=== PATIENT | male | born 1935 | race Caucasian/White ===

== ENCOUNTER 2016-08-09 17:28 | Emergency (ER) | payer MEDICARE ==
--- NOTE | 2016-08-09 18:15 | Emergency Department Record ---
History of Present Illness - General Chief Complaint: Fall Injury Stated Complaint: FALL Time Seen by Provider: 08/09/16 18:10 Source: Patient, Family Mode of Arrival: Wheelchair - History of Present Illness Initial Comments: The patient and his states that he has been falling in the past and has fallen 4 times since , 08-06-16. He states that he feels unsteady and then falls. This time he states he hit the right side of his head on something on the way down and now it is sore there. reports that he has peripheral neuropathy and gets his feet tangled and confused when he tried to ambulate sometimes. He uses a walker typically. Dr. Goldstein is getting him an appointment with a neurologist at [facility] to see if he has parkinsons or other neurologic problems. He has a tremor in his right hand on and off. Also, he is going to see a urologist to evaluate his prostate and any other urologic issues. He has 2 stimulators in his back for his chronic back pain, uses hearing aides, and is being treated for htn, rectal prolapse, and chronic leg pain with chronic leg edema bilaterally. MD Complaint: Fall Onset/Timin -: Minutes(s) Fall From: Standing When Fall Occurred: Just prior to arrival Fall Witnessed: No Place Fall Occurred: Home Loss of Consciousness: None Prolonged Down Time?: No Symptoms Prior to Fall: None Location: Head, Back Severity: Moderate Severity scale (1-10): 8 Quality: Aching Context: History of frequent falls Associated Symptoms: Headache - [place] Coma Scale Eye Response: (4) Open spontaneously Motor Response: (6) Obeys commands Verbal Response: (5) Oriented [place] Total: 15 - Related Data Home Medications Medication Instructions Recorded Confirmed Last Taken Albuterol Sulfate 0.083% [Neb] 2.5 mg IH Q4HR 05/26/14 08/09/16 06/13/16 Budesonide/Formoterol Fumarate 10.2 gm IH BID 05/26/14 08/09/16 06/13/16 [Symbicort 160-4.5 Mcg Inhaler] Clorazepate Dipotassium [Tranxene 7.5 mg PO BID 05/26/14 08/09/16 06/13/16 T-Tab] Donepezil HCl [Aricept] 10 mg PO DAILY 05/26/14 08/09/16 06/13/16 Doxazosin Mesylate [Cardura] 2 mg PO BID 05/26/14 08/09/16 06/13/16 Escitalopram Oxalate [Lexapro] 10 mg PO QHS 05/26/14 08/09/16 06/12/16 Meloxicam [Mobic] 7.5 mg PO BID 05/26/14 08/09/16 06/13/16 Omeprazole [Prilosec] 40 mg PO DAILY 05/26/14 08/09/16 06/13/16 Ascorbate Calcium/Bioflavonoid 1 each PO BID 02/24/16 08/09/16 06/13/16 [Naima-C 500 mg Tablet] Aspirin Chewable 81 mg PO DAILY 02/24/16 08/09/16 06/13/16 Bisoprolol Fumarate/Hctz [Ziac 1 each PO DAILY 02/24/16 08/09/16 06/13/16 2.5-6.25 mg Tablet] Cholecalciferol (Vitamin D3) 800 unit PO DAILY 02/24/16 08/09/16 06/13/16 [Vitamin D3] Guaifenesin [Mucinex] 1,200 mg PO DAILY 02/24/16 08/09/16 06/13/16 Hydrocodone/Acetaminophen [Payne 1 tab PO Q8H PRN 02/24/16 08/09/16 06/13/16 5mg/325mg] Magnesium 500 mg PO DAILY 02/24/16 08/09/16 06/13/16 Melatonin 10 mg PO QHS 02/24/16 08/09/16 06/12/16 Mv,Minerals/FA/Lycopene/Ginkgo 1 each PO DAILY 02/24/16 08/09/16 06/13/16 [One Daily Men's 50+ Tablet] Tamsulosin HCl [Flomax] 0.8 mg PO QHS 06/13/16 08/09/16 06/12/16 Previous Rx's Medication Instructions Recorded Polyethylene Glycol 3350 [Miralax] 1 packet PO DAILY #30 packet 11/07/15 Allergies Allergy/AdvReac Type Severity Reaction Status Date / Time No Known Drug Allergies Allergy Unknown Verified 06/13/16 18:37 [NO KNOWN DRUG ALLERGIES] Travel Screening - Travel/Exposure Within Last 30 Days Have you traveled within the last 30 days?: No Review of Systems Reviewed: No additional complaints except as noted below Constitutional: Reports: As per HPI. Denies: Chills, Fever, Malaise, Night sweats, Weakness, Weight change Eyes: Reports: As per HPI. Denies: Eye discharge, Eye pain, Photophobia, Vision change ENT: Reports: As per HPI. Denies: Congestion, Dental pain, Ear pain, Epistaxis , Hearing loss, Throat pain Respiratory: Reports: As per HPI. Denies: Cough, Dyspnea, Hemoptysis, Stridor, Wheezes Cardiovascular: Reports: As per HPI. Denies: Arrhythmia, Chest pain, Dyspnea on exertion, Edema, Murmurs, Orthopnea, Palpitations, Paroxysmal nocturnal dyspnea, Rheumatic Fever, Syncope Endocrine: Reports: As per HPI. Denies: Fatigue, Heat or cold intolerance, Polydipsia, Polyuria Gastrointestinal: Reports: As per HPI. Denies: Abdominal pain, Constipation, Diarrhea, Hematemesis, Hematochezia, Melena, Nausea, Vomiting Genitourinary: Reports: As per HPI. Denies: Dysuria, Frequency, Hematuria, Incontinence, Retention, Testicular pain, Testicular mass, Urgency Musculoskeletal: Reports: As per HPI. Denies: Arthralgia, Back pain, Gout, Joint swelling, Myalgia, Neck pain Skin: Reports: As per HPI. Denies: Bruising, Change in color, Change in hair/ nails, Lesions, Pruritus, Rash Neurological: Reports: As per HPI. Denies: Abnormal gait, Confusion, Headache, Numbness, Paresthesias, Seizure, Tingling, Tremors, Vertigo, Weakness Psychiatric: Reports: As per HPI. Denies: Anxiety, Auditory hallucinations, Depression, Homicidal thoughts, Suicidal thoughts, Visual hallucinations Hematological/Lymphatic: Reports: As per HPI. Denies: Anemia, Blood Clots, Easy bleeding, Easy bruising, Swollen glands Past Medical History - SOCIAL HISTORY Smoking Status: Former smoker Alcohol Use: None Drug Use: None - RESPIRATORY Hx Respiratory Disorders: Yes Hx Asthma: Yes Hx COPD: Yes Hx Pneumonia: Yes (5 yrs ago) Hx Sleep Apnea: (tested for) - CARDIOVASCULAR Hx Cardio Disorders: Yes Hx Edema: Yes (slight in ankles) Hx Hypertension: Yes (good control w meds) Comment:: "has slower heartrate" "in the 60s" - NEURO Hx Neuro Disorders: Yes Hx Dementia: Yes (on Aricept) Hx Dizziness: Yes (when gets up too quickly) Hx Neuropathy: Yes (peripheral neuropathy in legs/& left hand) Hx of Neuromuscular Disease: Yes (peripheral neuropathy) Hx Weakness: Yes (both legs/feet) Comment:: some memory loss but no diagnosis - GI Hx GI Disorders: Yes Hx Reflux: Yes Hx Rectal Bleeding: Yes (has hemorrhoids internal-no bleed now) Hx of Polyps: Yes - Hx Genitourinary Disorders: Yes Hx Prostate Problems: Yes (? sees Dr Mckoy) Hx Renal Disease: Yes ("delicate kidneys"- creatinine elevated) Comment:: states he has a "drip" - ENDOCRINE Hx Endocrine Disorders: No - MUSCULOSKELETAL Hx Musculoskeletal Disorders: Yes Hx Arthritis: Yes (all over) Hx Back Injury: Yes ("4 yrs ago his heel caught a stone & fell -walking trail in [place].) Hx Osteoporosis: Yes Comment:: has bilat "frozen shoulders" - PSYCH Hx Psych Problems: Yes Hx Depression: Yes - HEMATOLOGY/ONCOLOGY Hx Hematology/Oncology Disorders: Yes Hx Bruising: Yes (easy to bruise) Hx Cancer: Yes (skin cancern removed) Family Medical History Any Significant Family History?: Yes Hx Cancer: Brother/Sister Hx Diabetes: Brother/Sister Hx Heart Disease: Father, Mother, Brother/Sister Hx HTN: Father Hx Stroke: Father Physical Exam - General General Appearance: Alert, Oriented x3, Cooperative, Mild distress (sitting in his wheelchair, getting up and down slowly due to being uncomfortable sitting, fine tremor of his right hand intermittently noted) Limitations: Physical limitation (hard of hearing, tremors) - Head Head exam: Normocephalic, Other (multiple very small abrasions, lacerations to right side of head with minor tenderness in that region) Head exam detail: Abrasion, Contusion. negative: Sanchez's sign, CSF otorrhea, CSF rhinorrhea, Hematoma, Laceration, Tenderness of temporal artery - Eye Eye exam: Normal appearance, PERRL, EOMI. negative: Nystagmus, Scleral icterus Pupils: Normal accommodation - ENT ENT exam: Normal exam, Mucous membranes moist, Normal external ear exam, Normal orophraynx, TM's normal bilaterally, Other (hearing aide right ear) Ear exam: Normal external inspection. negative: External canal tenderness Nasal Exam: Normal inspection. negative: Discharge, Sinus tenderness Mouth exam: Normal external inspection, Tongue normal Teeth exam: Normal inspection. negative: Dental caries Throat exam: Normal inspection. negative: Tonsillar erythema, Tonsillar exudate - Neck Neck exam: Normal inspection, Full ROM. negative: Lymphadenopathy, Meningismus , Tenderness - Respiratory Respiratory exam: Decreased breath sounds. negative: Accessory muscle use, Chest wall tenderness, Respiratory distress, Rhonchi, Stridor, Wheezes - Cardiovascular Cardiovascular Exam: Regular rate, Normal rhythm, Normal heart sounds - GI/Abdominal GI/Abdominal exam: Soft, Normal bowel sounds. negative: Tenderness - Rectal Rectal exam: Deferred - exam: Deferred - Extremities Extremities exam: Normal inspection, Full ROM, Normal capillary refill. negative: Tenderness - Back Back exam: Reports: Normal inspection, Full ROM. Denies: Muscle spasm, Rash noted, Tenderness - Neurological Neurological exam: Abnormal gait (unable without his walker), Alert, Normal gait , Oriented X3, Reflexes normal, Other (cogwheel-like rigidily similar to parkinsonian effect ) - Psychiatric Psychiatric exam: Normal affect, Normal mood - Skin Skin exam: Dry, Intact, Normal color, Warm Course Vital Signs 08/09/16 17:33 Temperature 98.1 F Pulse Rate 73 Respiratory 20 Rate Blood Pressure 131/83 Pulse Ox 98 Medical Decision Making - Management Options MDM Management: No Additional Work-up Planned - Data Complexity MDM Data: Labs Ordered and/or Reviewed, X-Ray Ordered and/or Reviewed (Head and C spine CT without acute abnormality but numerous chronic changes. Xrays of pelvis, LS spine, CXR all with NO acute abnormality but numerous chronic degenerative arthritic changes as before. Per radiologist.), EKG Ordered and/or Reviewed - Lab Data Result diagrams: 08/09/16 18:25 08/09/16 18:25 - EKG Data -: EKG Interpreted by Me EKG: No Acute Changes, Unchanged From Previous (prior of 03-01-16 is unchanged) Disposition Disposition: Discharge Clinical Impression: Recurrent falls Dementia Qualifiers: Dementia type: associated with other underlying disease Dementia behavioral disturbance: without behavioral disturbance Qualified Code(s): F02.80 - Dementia in other diseases classified elsewhere without behavioral disturbance Disposition: Home, Self-Care Condition: (1) Good Instructions: Fall Prevention for Older Adults (ED) Additional Instructions: Home with . Follow up with PCP as prevously arranged. Follow up with Neurologist and urologist as previously arranged. Continue present meds. Use your walker and extra caution for ambulation at all times.
[2016-08-09 18:41] LABS: BASO % 0.4 % (0-6); EOS % 1.7 % (0-6); GRAN % 79.2 % (47-80); HEMATOCRIT 41.3 % (42.0-52.0); HEMOGLOBIN 14.2 gm/dl (14.0-18.0); LYMPH % 10.7 % (16-45); MEAN CELL VOLUME 92.2 fl (81-97); MEAN CORPUSCULAR HEMOGLOBIN 31.7 pg (27-33); MEAN CORPUSCULAR HGB CONC 34.4 g/dl (32-36); MEAN PLATELET VOLUME 8.5 fl (7.4-10.4); PLATELET COUNT 164 K/uL (130-400); RED BLOOD COUNT 4.48 M/uL (4.40-5.70); RED CELL DISTRIBUTION WIDTH 12.8 % (11.5-14.5); WHITE BLOOD COUNT W/O DIFF 5.2 K/uL (4.2-12.2)
[2016-08-09 18:52] LABS: ANION GAP 9.9 (7-16); BLOOD UREA NITROGEN 29 mg/dL (9-20); CARBON DIOXIDE 26.1 mmol/L (22-30); CREATINE PHOSPHOKINASE 161 U/L (55-170); CREATININE 1.3 mg/dL (0.66-1.25); EST GLOMERULAR FILTRATION RATE 56 ml/min; GLUCOSE,RANDOM 110 mg/dL (70-110)
[2016-08-09 18:53] LABS: ALBUMIN 4.3 gm/dL (3.5-5.0); BILIRUBIN,TOTAL 0.44 mg/dL (0.2-1.3); TOTAL PROTEIN 6.8 gm/dL (6.3-8.2)
[2016-08-09 18:57] LABS: INR 1.11; PARTIAL THROMBOPLASTIN TIME 30.9 SECONDS (24.5-39.1); PROTHROMBIN TIME (PATIENT) 12.5 SECONDS (9.5-12.1)
[2016-08-09 19:04] LABS: TROPONIN I < 0.012 ng/mL (0.00-0.034)
[2016-08-09 20:48] LABS: URINE APPEARANCE CLEAR; URINE BILIRUBIN NEGATIVE (NEGATIVE); URINE BLOOD TRACE-I (NEGATIVE); URINE COLOR YELLOW; URINE GLUCOSE (UA) NEGATIVE (NEGATIVE); URINE KETONE NEGATIVE (NEGATIVE); URINE LEUKOCYTE ESTERASE NEGATIVE (NEGATIVE); URINE NITRITE NEGATIVE (NEGATIVE); URINE PROTEIN NEGATIVE (NEGATIVE); URINE UROBILINOGEN 0.2 E.U./dL (0.20 - 1.00)
[2016-08-09 20:55] LABS: URINE BACTERIA NONE SEEN; URINE EPITHELIAL CELLS 0 - 2 (FEW); URINE RBC 0 - 2 (NONE SEEN); URINE WBC 0 - 2 (0-2/hpf)
--- NOTE | 2016-08-13 13:00 | CT SCAN REPORT ---
EXAM: CT SCAN OF THE BRAIN WITHOUT CONTRAST HISTORY: MULTIPLE RECENT FALLS. HIT HEAD. TECHNIQUE: Standard CT imaging of the brain was performed in the axial plane without contrast. Additional coronal and sagittal reformatted images were also performed. Comparison: 06/13/16. Encounter: Initial. FINDINGS: There is mild generalized atrophy. The ventricles and subarachnoid spaces are otherwise normal. Mild chronic small vessel ischemic changes are present within the periventricular and subcortical white matter of both cerebral hemispheres and are unchanged. There is no mass, mass effect, intracranial hemorrhage, visible acute infarct, or abnormal extraaxial fluid. The skull is intact. Mild chronic mucosal thickening is present within the ethmoid sinuses and appears unchanged. The orbits and mastoids are normal. IMPRESSION: 1. STABLE ATROPHY AND CHRONIC SMALL VESSEL ISCHEMIC CHANGES. 2. NO ACUTE INTRACRANIAL ABNORMALITY. JOB NUMBER: [id number] [facility]
--- NOTE | 2016-08-13 13:05 | CT SCAN REPORT ---
EXAM: CT SCAN OF THE CERVICAL SPINE WITHOUT CONTRAST HISTORY: MULTIPLE RECENT FALLS. STRUCK HEAD. TECHNIQUE: Standard CT imaging of the cervical spine was performed in the axial plane without contrast. Additional coronal and sagittal reformatted images were also performed. Comparison: 06/13/16. FINDINGS: There is straightening of the cervical lordosis which is unchanged from the prior study. There is moderate arthritic change of the atlantodental articulation with associated pannus formation. This is unchanged. There is severe disk space narrowing of the C4 through the T2 levels with associated end plate degenerative change. Facet arthropathy is present throughout. There is no acute fracture, subluxation, or prevertebral soft tissue swelling. There is no gross central canal stenosis. Moderate neural foraminal narrowing is present at multiple levels. The neck soft tissues appear within normal limits. The lung apices are clear. IMPRESSION: 1. 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 2. NO ACUTE CERVICAL SPINE PATHOLOGY. J[facility]BER: [id number] [facility]
--- NOTE | 2016-08-13 13:07 | RADIOLOGY REPORT ---
EXAM: CHEST, TWO VIEWS HISTORY: MULTIPLE FALLS. TECHNIQUE: AP and lateral views of the chest were obtained. Comparison: 03/01/16. FINDINGS: The heart is normal in size. The mediastinum and pulmonary vasculature appear normal. There are no acute infiltrates or effusions. There is no pneumothorax. Dextroconvex scoliosis and multilevel degenerative changes are present within the thoracic spine. Electrical stimulator leads are present within the lower thoracic region and are unchanged. There are degenerative changes at both shoulders. No acute osseous abnormalities are identified. A stable calcified granuloma is present within the left mid lung. IMPRESSION: STABLE CHEST WITH NO ACUTE PROCESS IDENTIFIED. JOB NUMBER: [id number] [facility]
--- NOTE | 2016-08-13 13:11 | RADIOLOGY REPORT ---
EXAM: COMPLETE PELVIS HISTORY: MULTIPLE RECENT FALLS. TECHNIQUE: Three views of the pelvis were obtained. Comparison: 03/01/16. FINDINGS: Electrical stimulator devices project over both sides of the pelvis. Leads are present within the lumbosacral region. The bones are diffusely osteopenic. Degenerative changes are present within the lower lumbar spine as well as the sacroiliac joints and both hips. These all appear stable. There is no acute fracture or dislocation. IMPRESSION: 1. STABLE OSTEOPENIA AND MULTIFOCAL ARTHRITIC CHANGES. 2. NO ACUTE PATHOLOGY IDENTIFIED. J[facility]BER: [id number] [facility]
--- NOTE | 2016-08-13 13:15 | RADIOLOGY REPORT ---
EXAM: LUMBAR SPINE HISTORY: MULTIPLE RECENT FALLS. TECHNIQUE: Six views of the lumbar spine were obtained. Comparison: 03/01/16. FINDINGS: Electrical stimulator devices project over both sides of the pelvis. Leads extend to the lumbosacral spine as well as to the thoracolumbar spine. There is levoconvex scoliosis within the lumbar region which appears stable. There is severe disk space narrowing and end plate degenerative change throughout the lumbar region. Extensive facet arthropathy is also present throughout. There is no spondylolysis, spondylolisthesis, or acute compression fracture. The bony pelvis appears intact. IMPRESSION: 1. 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 2. LEVOCONVEX SCOLIOSIS. 3. NO ACUTE LUMBAR SPINE PATHOLOGY. 4. ELECTRICAL STIMULATOR DEVICES IN PLACE. JOB NUMBER: [id number] [facility]
== END 2016-08-09 22:06 | disposition home or self-care (01) ==
LOC: ER 17:28
DX: S01.81XA Laceration without foreign body of other part of head, initial encounter (principal); R51 Headache; M54.5 Low back pain; M25.559 Pain in unspecified hip; R25.1 Tremor, unspecified; I10 Essential (primary) hypertension; M50.30 Other cervical disc degeneration, unspecified cervical region; F02.80 Dementia in other diseases classified elsewhere, unspecified severity, without behavioral disturbance, psychotic disturbance, mood disturbance, and anxiety; W18.00XA Striking against unspecified object with subsequent fall, initial encounter; Y92.009 Unspecified place in unspecified non-institutional (private) residence as the place of occurrence of the external cause; Z87.891 Personal history of nicotine dependence; Z91.81 History of falling
CPT/HCPCS: 70450; 71020; 72110; 72125; 72190; 80048; 80076; 81001; 82550; 84484; 85025; 85610; 85730; 93005; 93010; 99284

== ENCOUNTER 2017-12-12 19:28 | Emergency (ER) | payer MEDICARE ==
--- NOTE | 2017-12-12 19:40 | Emergency Department Record ---
History of Present Illness - General Chief Complaint: Chest Pain Stated Complaint: CHEST TIGHTNESS,HIGH BLOOD PRESSURE Source: Patient Mode of Arrival: Ambulatory Limitations: No limitations - History of Present Illness Initial Comments: 82 yo male presents with a tightness feeling in the chest that started in the 1- 2 hours. He was busier than usual today active outside working on his tractor. He felt some shortness of breath. No cough. He states no sharp pain or pain in the back. He denies a history of CAD. He does have Parkinson's. No other recent abrupt changes in his health. Dr Goldstein is his doctor. No nausea, vomiting. His symptoms seem to be more with the activity. MD Complaint: Chest pain -: Hour(s) Onset: During exertion Pain Location: Substernal Pain Radiation: None Severity: Mild Quality: Heaviness, Tightness, Other Consistency: Constant Improves With: Nothing Worsens With: Nothing Anginal Symptoms: Dyspnea Other Symptoms: Other Treatments Prior to Arrival: None - Related Data Home Medications Medication Instructions Recorded Confirmed Last Taken Memantine HCl [Namenda] 10 mg PO BID 12/12/17 12/12/17 Unknown Previous Rx's Medication Instructions Recorded Polyethylene Glycol 3350 [Miralax] 1 packet PO DAILY #30 packet 11/07/15 Allergies Allergy/AdvReac Type Severity Reaction Status Date / Time No Known Drug Allergies Allergy Unknown Verified 06/13/16 18:37 [NO KNOWN DRUG ALLERGIES] Review of Systems Constitutional: Denies: Chills, Fever, Malaise, Weakness Eyes: Denies: Eye discharge ENT: Denies: Congestion, Throat pain Respiratory: Reports: Dyspnea. Denies: Cough, Hemoptysis, Stridor, Wheezes Cardiovascular: Reports: Chest pain. Denies: Palpitations, Syncope Endocrine: Denies: Fatigue, Polydipsia, Polyuria Gastrointestinal: Denies: Abdominal pain, Diarrhea, Nausea, Vomiting Genitourinary: Denies: Dysuria, Frequency, Hematuria Musculoskeletal: Denies: Arthralgia, Back pain, Joint swelling, Myalgia Skin: Denies: Bruising, Change in color, Rash Neurological: Denies: Confusion, Headache Psychiatric: Denies: Anxiety Hematological/Lymphatic: Denies: Easy bleeding, Easy bruising Past Medical History - SOCIAL HISTORY Smoking Status: Former smoker Drug Use: None - RESPIRATORY Hx Respiratory Disorders: Yes Hx Asthma: Yes Hx COPD: Yes Hx Pneumonia: Yes (5 yrs ago) Hx Sleep Apnea: (tested for) - CARDIOVASCULAR Hx Cardio Disorders: Yes Hx Edema: Yes (slight in ankles) Hx Hypertension: Yes (good control w meds) Comment:: "has slower heartrate" "in the 60s" - NEURO Hx Neuro Disorders: Yes Hx Dementia: Yes (on Aricept) Hx Dizziness: Yes (when gets up too quickly) Hx Neuropathy: Yes (peripheral neuropathy in legs/& left hand) Hx of Neuromuscular Disease: Yes (peripheral neuropathy) Hx Weakness: Yes (both legs/feet) Comment:: some memory loss but no diagnosis - GI Hx GI Disorders: Yes Hx Reflux: Yes Hx Rectal Bleeding: Yes (has hemorrhoids internal-no bleed now) Hx of Polyps: Yes - Hx Genitourinary Disorders: Yes Hx Prostate Problems: Yes (? sees Dr Mckoy) Hx Renal Disease: Yes ("delicate kidneys"- creatinine elevated) Comment:: states he has a "drip" - ENDOCRINE Hx Endocrine Disorders: No - MUSCULOSKELETAL Hx Musculoskeletal Disorders: Yes Hx Arthritis: Yes (all over) Hx Back Injury: Yes ("4 yrs ago his heel caught a stone & fell -walking trail in [place].) Hx Osteoporosis: Yes Comment:: has bilat "frozen shoulders" - PSYCH Hx Psych Problems: Yes Hx Depression: Yes - HEMATOLOGY/ONCOLOGY Hx Hematology/Oncology Disorders: Yes Hx Bruising: Yes (easy to bruise) Hx Cancer: Yes (skin cancern removed) Family Medical History Hx Cancer: Brother/Sister Hx Diabetes: Brother/Sister Hx Heart Disease: Father, Mother, Brother/Sister Hx HTN: Father Hx Stroke: Father Physical Exam - General General Appearance: Alert, Oriented x3, Cooperative, No acute distress Limitations: No limitations - Head Head exam: Normal inspection - Eye Eye exam: Normal appearance. negative: Conjunctival injection, Scleral icterus - ENT ENT exam: Normal exam Ear exam: Normal external inspection Nasal Exam: Normal inspection Mouth exam: Normal external inspection Teeth exam: Normal inspection Throat exam: Normal inspection - Neck Neck exam: Normal inspection, Full ROM. negative: Tenderness - Respiratory Respiratory exam: Normal lung sounds bilaterally. negative: Respiratory distress - Cardiovascular Cardiovascular Exam: Regular rate, Normal rhythm, Normal heart sounds Peripheral Pulses: 2+: Radial (R), Radial (L) - GI/Abdominal GI/Abdominal exam: Soft. negative: Tenderness - Rectal Rectal exam: Deferred - exam: Deferred - Extremities Extremities exam: Normal inspection, Full ROM, Normal capillary refill. negative: Pedal edema, Tenderness - Back Back exam: Denies: CVA tenderness (R), CVA tenderness (L) - Neurological Neurological exam: Alert, Normal gait, Oriented X3, Reflexes normal, Other ( tremor) - Psychiatric Psychiatric exam: Normal affect, Normal mood - Skin Skin exam: Dry, Intact, Normal color, Warm Course - Reevaluation(s) Reevaluation #1: EKG 1943 sinus rhythm rate is 69, ME 213, artifact from nerve stimulator, No acute ST changes. Prior EKG demonstrated artifact from the nerve stimulator as well 12/12/17 19:58 12/12/17 20:26 EKG #2 was performed after the nerve stimulator turned off 2012 NSR rate 65, intervals normal, axis L, no acute changes, NO changes from prior EKG 12/12/17 20:33 The Troponin is indeterminate at 0.04 The CK and MB are elevated The patient remains pain free I recommended transfer for a cardiology consultation The patient prefers [facility]. 12/12/17 20:38 Dr Macdonald recommends transfer to [facility] with IM 12/12/17 20:54 Dr Verdin accepts the patient for transfer. Medical Decision Making - Lab Data Result diagrams: 12/12/17 19:41 12/12/17 19:41 Disposition Disposition: Transfer Clinical Impression: Chest pain, Unstable angina Disposition: Acute Care Hospital Transfer Transfer To: [facility] [place] For Transfer: [place], Chest pain Accepting Physician: Javier Time Discussed w/Accepting Physician: 20:54 Condition: (2) Stable Forms: Patient Portal Access Time of Disposition: 20:33 Quality - Quality Measures Quality Measures: N/A - Blood Pressure Screening Does Patient Have Any of the Following: Active Dx of HTN Blood Pressure Classification: Pre-Hypertensive BP Reading Systolic Measurement: 128 Diastolic Measurement: 88 Screening for High Blood Pressure: Patient Exclusion, Hx of HTN [G9744]
[2017-12-12 19:48] LABS: BASO % 0.3 % (0-6); EOS % 2.8 % (0-6); GRAN % 77.2 % (47-80); HEMATOCRIT 45.7 % (42.0-52.0); HEMOGLOBIN 15.1 gm/dl (14.0-18.0); LYMPH % 11.7 % (16-45); MEAN CELL VOLUME 98.9 fl (81-97); MEAN CORPUSCULAR HEMOGLOBIN 32.7 pg (27-33); MEAN PLATELET VOLUME 8.5 fl (7.4-10.4); PLATELET COUNT 171 K/uL (130-400); RED BLOOD COUNT 4.62 M/uL (4.40-5.70); RED CELL DISTRIBUTION WIDTH 13.4 % (11.5-14.5)
[2017-12-12 20:00] LABS: BILIRUBIN,TOTAL 0.3 mg/dL (0.2-1.0); CREATININE 1.5 mg/dL (0.7-1.2)
[2017-12-12 20:01] LABS: TOTAL PROTEIN 7.1 g/dL (6.6-8.7)
[2017-12-12 20:05] LABS: ALB/GLOB RATIO 1.5 (1.1-1.8); ALBUMIN 4.3 g/dL (4.0-5.0)
[2017-12-12 20:08] LABS: CKMB 9.2 ng/mL (<6.73)
[2017-12-12 20:16] LABS: CKMB RELATIVE INDEX 5.5 % (0-4)
[2017-12-12] MEDS ORDERED: ASPIRIN 325 MG TABLET PO ONE (20:25)
[2017-12-12] MEDS ORDERED: HEPARIN SODIUM 1000 UNIT/1 ML 10ML VIAL IVP ONE (20:27)
[2017-12-12] MEDS ORDERED: HEPARIN SODIUM/D5W 25,000 UNITS/500 ML BAG IV SCH (20:30)
--- NOTE | 2017-12-13 14:23 | RADIOLOGY REPORT ---
EXAM: AP PORTABLE CHEST HISTORY: CHEST TIGHTNESS, HIGH BLOOD PRESSURE. TECHNIQUE: An AP portable view of the chest was obtained. Comparison: Two view chest 08/09/16. FINDINGS: The heart size is within normal limits. Lordotic positioning. No definite acute infiltrate seen. No pleural effusion or pneumothorax evident. Small granulomas left mid lung unchanged from before and also unchanged from consistent with a granuloma. Mild torsion of the aorta. IMPRESSION: 1. SMALL GRANULOMA LEFT MID LUNG. 2. NO ACUTE INFILTRATE IDENTIFIED. JOB NUMBER: [id number] [facility]
== END 2017-12-12 22:51 | disposition short-term general hospital (02) ==
LOC: ER 19:28
DX: I20.0 Unstable angina (principal); R06.02 Shortness of breath; I10 Essential (primary) hypertension; J44.9 Chronic obstructive pulmonary disease, unspecified; F17.210 Nicotine dependence, cigarettes, uncomplicated
CPT/HCPCS: 71045; 80053; 82550; 82553; 84484; 85025; 93005; 93010; 96365; 96366; 96375; 99285

== ENCOUNTER 2018-04-24 12:41 | Emergency (ER) | payer MEDICARE ==
--- NOTE | 2018-04-24 13:47 | Emergency Department Record ---
History of Present Illness - General Chief Complaint: Laceration(s) Stated Complaint: rt forearm injury Time Seen by Provider: 04/24/18 13:38 Source: Patient, RN notes reviewed Mode of Arrival: Ambulatory - History of Present Illness Initial Commments: fall in his barn and tool and toolcontainer fell over on him with laceration to the right forearm and swelling and he also complains of neck pain and talking slowly. history of parkinson disease. primary Dr. Goldstein Onset/Timin -: Minutes(s) Place: Home Context: Accidental Associated Symptoms: None Treatments Prior to Arrival: Bandage - Vipul Coma Scale Eye Response: (4) Open spontaneously Motor Response: (6) Obeys commands Verbal Response: (5) Oriented [place] Total: 15 - Related Data Hx Tetanus Toxoid Vaccination: Yes Year of Tetanus Vaccination: unknown Home Medications Medication Instructions Recorded Confirmed Last Taken Carbidopa/Levodopa 25Mg/100Mg 1 each PO QID 04/24/18 04/24/18 04/23/18 [Sinemet] Previous Rx's Medication Instructions Recorded Polyethylene Glycol 3350 [Miralax] 1 packet PO DAILY #30 packet 11/07/15 Allergies Allergy/AdvReac Type Severity Reaction Status Date / Time No Known Drug Allergies Allergy Unknown Verified 06/13/16 18:37 [NO KNOWN DRUG ALLERGIES] Travel Screening - Travel/Exposure Within Last 30 Days Have you traveled within the last 30 days?: No - Travel/Exposure Within Last Year Have you traveled outside the [place] in the last year?: No - Additonal Travel Details Have you been exposed to anyone with a communicable illness?: No - Travel Symptoms Symptom Screening: None Review of Systems Reviewed: No additional complaints except as noted below Constitutional: Reports: As per HPI. Denies: Chills, Fever, Malaise, Night sweats, Weakness, Weight change Eyes: Reports: As per HPI. Denies: Eye discharge, Eye pain, Photophobia, Vision change ENT: Reports: As per HPI. Denies: Congestion, Dental pain, Ear pain, Epistaxis , Hearing loss, Throat pain Respiratory: Reports: As per HPI. Denies: Cough, Dyspnea, Hemoptysis, Stridor, Wheezes Cardiovascular: Reports: As per HPI. Denies: Arrhythmia, Chest pain, Dyspnea on exertion, Edema, Murmurs, Orthopnea, Palpitations, Paroxysmal nocturnal dyspnea, Rheumatic Fever, Syncope Endocrine: Reports: As per HPI. Denies: Fatigue, Heat or cold intolerance, Polydipsia, Polyuria Gastrointestinal: Reports: As per HPI. Denies: Abdominal pain, Constipation, Diarrhea, Hematemesis, Hematochezia, Melena, Nausea, Vomiting Genitourinary: Reports: As per HPI. Denies: Dysuria, Frequency, Hematuria, Incontinence, Retention, Testicular pain, Testicular mass, Urgency Musculoskeletal: Reports: As per HPI. Denies: Arthralgia, Back pain, Gout, Joint swelling, Myalgia, Neck pain Skin: Reports: As per HPI. Denies: Bruising, Change in color, Change in hair/ nails, Lesions, Pruritus, Rash Neurological: Reports: As per HPI. Denies: Abnormal gait, Confusion, Headache, Numbness, Paresthesias, Seizure, Tingling, Tremors, Vertigo, Weakness Psychiatric: Reports: As per HPI. Denies: Anxiety, Auditory hallucinations, Depression, Homicidal thoughts, Suicidal thoughts, Visual hallucinations Hematological/Lymphatic: Reports: As per HPI. Denies: Anemia, Blood Clots, Easy bleeding, Easy bruising, Swollen glands Past Medical History - SOCIAL HISTORY Smoking Status: Former smoker Alcohol Use: None Drug Use: None - RESPIRATORY Hx Respiratory Disorders: Yes Hx Asthma: Yes Hx COPD: Yes Hx Pneumonia: Yes (5 yrs ago) Hx Sleep Apnea: (tested for) - CARDIOVASCULAR Hx Cardio Disorders: Yes Hx Edema: Yes (slight in ankles) Hx Hypertension: Yes (good control w meds) Comment:: "has slower heartrate" "in the 60s" - NEURO Hx Neuro Disorders: Yes Hx Dementia: Yes (on Aricept) Hx Dizziness: Yes (when gets up too quickly) Hx Neuropathy: Yes (peripheral neuropathy in legs/& left hand) Hx of Neuromuscular Disease: Yes (peripheral neuropathy) Hx Weakness: Yes (both legs/feet) Comment:: some memory loss but no diagnosis - GI Hx GI Disorders: Yes Hx Reflux: Yes Hx Rectal Bleeding: Yes (has hemorrhoids internal-no bleed now) Hx of Polyps: Yes - Hx Genitourinary Disorders: Yes Hx Prostate Problems: Yes (? sees Dr Mckoy) Hx Renal Disease: Yes ("delicate kidneys"- creatinine elevated) Comment:: states he has a "drip" - ENDOCRINE Hx Endocrine Disorders: No - MUSCULOSKELETAL Hx Musculoskeletal Disorders: Yes Hx Arthritis: Yes (all over) Hx Back Injury: Yes ("4 yrs ago his heel caught a stone & fell -walking trail in [place].) Hx Osteoporosis: Yes Comment:: has bilat "frozen shoulders" - PSYCH Hx Psych Problems: Yes Hx Depression: Yes - HEMATOLOGY/ONCOLOGY Hx Hematology/Oncology Disorders: Yes Hx Bruising: Yes (easy to bruise) Hx Cancer: Yes (skin cancern removed) Family Medical History Any Significant Family History?: No Hx Cancer: Brother/Sister Hx Diabetes: Brother/Sister Hx Heart Disease: Father, Mother, Brother/Sister Hx HTN: Father Hx Stroke: Father Physical Exam - General General Appearance: Alert, Oriented x3, Cooperative, No acute distress - Head Head exam: Normal inspection - Eye Eye exam: Normal appearance, PERRL Pupils: Normal accommodation - ENT ENT exam: Normal exam, Mucous membranes moist, Normal external ear exam, Normal orophraynx, TM's normal bilaterally Ear exam: Normal external inspection. negative: External canal tenderness Nasal Exam: Normal inspection. negative: Discharge, Sinus tenderness Mouth exam: Normal external inspection, Tongue normal Teeth exam: Normal inspection. negative: Dental caries Throat exam: Normal inspection. negative: Tonsillar erythema, Tonsillar exudate - Neck Neck exam: Normal inspection, Full ROM. negative: Tenderness - Respiratory Respiratory exam: Normal lung sounds bilaterally. negative: Respiratory distress - Cardiovascular Cardiovascular Exam: Regular rate, Normal rhythm, Normal heart sounds - GI/Abdominal GI/Abdominal exam: Soft, Normal bowel sounds. negative: Tenderness - Rectal Rectal exam: Deferred - exam: Deferred - Extremities Extremities exam: Normal inspection, Full ROM, Normal capillary refill. negative: Tenderness - Back Back exam: Reports: Normal inspection, Full ROM. Denies: Muscle spasm, Rash noted, Tenderness - Neurological Neurological exam: Alert, Normal gait, Oriented X3, Reflexes normal - Psychiatric Psychiatric exam: Normal affect, Normal mood - Skin Skin exam: Dry, Intact, Normal color, Warm Course Vital Signs 04/24/18 12:59 Temperature 97.4 F L Pulse Rate 61 Respiratory 20 Rate Blood Pressure 145/80 Pulse Ox 98 - Reevaluation(s) Reevaluation #1: laceration right forearm 6 inches and skin is to thin to suture and applied steristrips to approximate the skin edges after cleaning with shurclens. 04/24/18 14:50 Medical Decision Making - Lab Data Result diagrams: 04/24/18 13:45 04/24/18 13:45 Disposition Clinical Impression: Laceration of arm Qualifiers: Encounter type: initial encounter Laterality: right Qualified Code(s): S41.111A - Laceration without foreign body of right upper arm, initial encounter Cervical strain, acute Qualifiers: Encounter type: initial encounter Qualified Code(s): S16.1XXA - Strain of muscle, fascia and tendon at neck level, initial encounter Disposition: Home, Self-Care Condition: (1) Good Instructions: Laceration (ED) Additional Instructions: follow up with Dr. Goldstein in 2-3 days left steristrips fall off by themself. wound care Forms: Patient Portal Access Time of Disposition: 14:54 Quality - Quality Measures Quality Measures: N/A - Blood Pressure Screening Does Patient Have Any of the Following: No, Active Dx of HTN Blood Pressure Classification: Pre-Hypertensive BP Reading Systolic Measurement: 145 Diastolic Measurement: 80 Screening for High Blood Pressure: Patient Exclusion, Hx of HTN [[id number]]
[2018-04-24 13:51] LABS: BASO % 0.4 % (0-6); EOS % 5.2 % (0-6); GRAN % 72.2 % (47-80); HEMOGLOBIN 13.8 gm/dl (14.0-18.0); LYMPH % 12.5 % (16-45); MEAN CELL VOLUME 99.3 fl (81-97); MEAN CORPUSCULAR HGB CONC 32.1 g/dl (32-36); MEAN PLATELET VOLUME 8.9 fl (7.4-10.4); MONO % 9.7 % (0-9); PLATELET COUNT 175 K/uL (130-400); RED BLOOD COUNT 4.33 M/uL (4.40-5.70); RED CELL DISTRIBUTION WIDTH 13.4 % (11.5-14.5)
[2018-04-24 13:52] LABS: MEAN CORPUSCULAR HEMOGLOBIN 31.8 pg (27-33)
[2018-04-24 14:04] LABS: CREATININE 1.6 mg/dL (0.7-1.2)
== END 2018-04-24 15:32 | disposition home or self-care (01) ==
LOC: ER 12:41
DX: S51.811A Laceration without foreign body of right forearm, initial encounter (principal); S16.1XXA Strain of muscle, fascia and tendon at neck level, initial encounter; I10 Essential (primary) hypertension; G20 Parkinson's disease; Z87.891 Personal history of nicotine dependence; W01.198A Fall on same level from slipping, tripping and stumbling with subsequent striking against other object, initial encounter; Y92.71 Barn as the place of occurrence of the external cause
CPT/HCPCS: 70450; 72125; 80048; 85025; 99283; 99284

== ENCOUNTER 2018-08-25 11:15 | Emergency (ER) | payer MEDICARE ==
[2018-08-25] MEDS ORDERED: METHYLPREDNISOLONE PF 125MG/VIAL IVP ONE (11:37)
[2018-08-25] MEDS ORDERED: IPRATROPIUM/ALBUTEROL (0.5MG/3MG) NEB INH ONE (11:44)
[2018-08-25 12:03] LABS: BASO % 0.4 % (0-6); GRAN % 75.7 % (47-80); HEMATOCRIT 46.6 % (42.0-52.0); HEMOGLOBIN 15.6 gm/dl (14.0-18.0); LYMPH % 8.7 % (16-45); MEAN CELL VOLUME 98.3 fl (81-97); MEAN CORPUSCULAR HEMOGLOBIN 32.9 pg (27-33); MEAN CORPUSCULAR HGB CONC 33.5 g/dl (32-36); MEAN PLATELET VOLUME 8.9 fl (7.4-10.4); MONO % 5.2 % (0-9); PLATELET COUNT 199 K/uL (130-400); RED BLOOD COUNT 4.74 M/uL (4.40-5.70); RED CELL DISTRIBUTION WIDTH 13.6 % (11.5-14.5); WHITE BLOOD COUNT W/O DIFF 5.2 K/uL (4.2-12.2)
[2018-08-25 12:06] LABS: CREATININE 1.5 mg/dL (0.7-1.2)
[2018-08-25 12:07] LABS: INFLUENZA A NEGATIVE (NEGATIVE); INFLUENZA B NEGATIVE (NEGATIVE)
[2018-08-25 12:13] LABS: NTpro B-NATRIURETIC PEPTIDE 230.7 pg/mL (<450)
--- NOTE | 2018-08-25 12:18 | Emergency Department Record ---
History of Present Illness - General Chief Complaint: Shortness of breath Stated Complaint: COUGHING/SHORT OF BREATH Time Seen by Provider: 08/25/18 11:28 Source: Patient Mode of Arrival: Wheelchair Limitations: No limitations - History of Present Illness Initial Comments: pt has been increasingly sob over the last week w a productive yellow cough Complaint: Shortness of breath Onset/Timin -: Week(s) Consistency: Getting worse Improves With: Rest, Upright position Worsens With: Exertion, Lying flat Known History Of: Asthma, COPD, Recurrent pneumonia Associated Symptoms: Cough, Sputum production Treatments Prior to Arrival: None - Related Data Home Oxygen Therapy: No Home Medications Medication Instructions Recorded Confirmed Last Taken Mirabegron [Myrbetriq] 50 mg PO QHS 08/25/18 08/25/18 Unknown Trazodone HCl 50 mg PO QHS 08/25/18 08/25/18 Unknown Previous Rx's Medication Instructions Recorded Polyethylene Glycol 3350 [Miralax] 1 packet PO DAILY #30 packet 11/07/15 Amoxicillin 500 mg PO Q8HR #30 capsule 08/25/18 Allergies Allergy/AdvReac Type Severity Reaction Status Date / Time No Known Drug Allergies Allergy Unknown Verified 08/25/18 11:21 [NO KNOWN DRUG ALLERGIES] Travel Screening - Travel/Exposure Within Last 30 Days Have you traveled within the last 30 days?: No - Travel/Exposure Within Last Year Have you traveled outside the [place] in the last year?: No - Additonal Travel Details Have you been exposed to anyone with a communicable illness?: No - Travel Symptoms Symptom Screening: None Review of Systems Reviewed: No additional complaints except as noted below Constitutional: Reports: As per HPI. Denies: Chills, Fever, Malaise, Night sweats, Weakness, Weight change Eyes: Reports: As per HPI. Denies: Eye discharge, Eye pain, Photophobia, Vision change ENT: Reports: As per HPI. Denies: Congestion, Dental pain, Ear pain, Epistaxis , Hearing loss, Throat pain Respiratory: Reports: As per HPI, Cough, Dyspnea. Denies: Hemoptysis, Stridor, Wheezes Cardiovascular: Reports: As per HPI. Denies: Arrhythmia, Chest pain, Dyspnea on exertion, Edema, Murmurs, Orthopnea, Palpitations, Paroxysmal nocturnal dyspnea, Rheumatic Fever, Syncope Endocrine: Reports: As per HPI. Denies: Fatigue, Heat or cold intolerance, Polydipsia, Polyuria Gastrointestinal: Reports: As per HPI. Denies: Abdominal pain, Constipation, Diarrhea, Hematemesis, Hematochezia, Melena, Nausea, Vomiting Genitourinary: Reports: As per HPI. Denies: Dysuria, Frequency, Hematuria, Incontinence, Retention, Testicular pain, Testicular mass, Urgency Musculoskeletal: Reports: As per HPI. Denies: Arthralgia, Back pain, Gout, Joint swelling, Myalgia, Neck pain Skin: Reports: As per HPI. Denies: Bruising, Change in color, Change in hair/ nails, Lesions, Pruritus, Rash Neurological: Reports: As per HPI. Denies: Abnormal gait, Confusion, Headache, Numbness, Paresthesias, Seizure, Tingling, Tremors, Vertigo, Weakness Psychiatric: Reports: As per HPI. Denies: Anxiety, Auditory hallucinations, Depression, Homicidal thoughts, Suicidal thoughts, Visual hallucinations Hematological/Lymphatic: Reports: As per HPI. Denies: Anemia, Blood Clots, Easy bleeding, Easy bruising, Swollen glands Past Medical History - SOCIAL HISTORY Smoking Status: Former smoker Alcohol Use: None Drug Use: None - RESPIRATORY Hx Respiratory Disorders: Yes Hx Asthma: Yes Hx COPD: Yes Hx Pneumonia: Yes (5 yrs ago) Hx Sleep Apnea: (tested for) - CARDIOVASCULAR Hx Cardio Disorders: Yes Hx Edema: Yes (slight in ankles) Hx Hypertension: Yes (good control w meds) Comment:: "has slower heartrate" "in the 60s" - NEURO Hx Neuro Disorders: Yes Hx Dementia: Yes (on Aricept) Hx Dizziness: Yes (when gets up too quickly) Hx Neuropathy: Yes (peripheral neuropathy in legs/& left hand) Hx of Neuromuscular Disease: Yes (peripheral neuropathy) Hx Weakness: Yes (both legs/feet) Comment:: some memory loss but no diagnosis - GI Hx GI Disorders: Yes Hx Reflux: Yes Hx Rectal Bleeding: Yes (has hemorrhoids internal-no bleed now) Hx of Polyps: Yes - Hx Genitourinary Disorders: Yes Hx Prostate Problems: Yes (? sees Dr Mckoy) Hx Renal Disease: Yes ("delicate kidneys"- creatinine elevated) Comment:: states he has a "drip" - ENDOCRINE Hx Endocrine Disorders: No - MUSCULOSKELETAL Hx Musculoskeletal Disorders: Yes Hx Arthritis: Yes (all over) Hx Back Injury: Yes ("4 yrs ago his heel caught a stone & fell -walking trail in [place].) Hx Osteoporosis: Yes Comment:: has bilat "frozen shoulders" - PSYCH Hx Psych Problems: Yes Hx Depression: Yes - HEMATOLOGY/ONCOLOGY Hx Hematology/Oncology Disorders: Yes Hx Bruising: Yes (easy to bruise) Hx Cancer: Yes (skin cancer removed) Family Medical History Any Significant Family History?: Yes Hx Cancer: Brother/Sister Hx Diabetes: Brother/Sister Hx Heart Disease: Father, Mother, Brother/Sister Hx HTN: Father Hx Stroke: Father Physical Exam - General General Appearance: Alert, Oriented x3, Cooperative, Mild distress - Head Head exam: Normal inspection - Eye Eye exam: Normal appearance, PERRL, EOMI Pupils: Normal accommodation - ENT ENT exam: Normal exam, Mucous membranes moist, Normal external ear exam, Normal orophraynx Ear exam: Normal external inspection. negative: External canal tenderness Nasal Exam: Normal inspection. negative: Discharge, Sinus tenderness Mouth exam: Normal external inspection, Tongue normal Teeth exam: Normal inspection. negative: Dental caries Throat exam: Normal inspection. negative: Tonsillar erythema, Tonsillar exudate - Neck Neck exam: Normal inspection, Full ROM. negative: Tenderness - Respiratory Respiratory exam: Respiratory distress, Wheezes - Cardiovascular Cardiovascular Exam: Regular rate, Normal rhythm, Normal heart sounds - GI/Abdominal GI/Abdominal exam: Soft, Normal bowel sounds. negative: Tenderness - Rectal Rectal exam: Deferred - exam: Deferred - Extremities Extremities exam: Normal inspection, Full ROM, Normal capillary refill. negative: Tenderness - Back Back exam: Reports: Normal inspection, Full ROM. Denies: Muscle spasm, Rash noted, Tenderness - Neurological Neurological exam: Alert, CN II-XII intact, Normal gait, Oriented X3 - Psychiatric Psychiatric exam: Normal affect, Normal mood - Skin Skin exam: Dry, Intact, Normal color, Warm Course Vital Signs 08/25/18 08/25/18 11:18 11:38 Temperature 97.6 F Pulse Rate 72 73 Respiratory 24 20 Rate Blood Pressure 109/73 Pulse Ox 89 L 100 - Reevaluation(s) Reevaluation #1: 08/25/18 13:25 pt feels better, breathing easier Medical Decision Making - Lab Data Result diagrams: 08/25/18 11:30 01/17/19 11:30 Lab Results 08/25/18 08/25/18 08/25/18 Range/Units 11:30 11:30 11:30 WBC 5.2 (4.2-12.2) K/uL RBC 4.74 (4.40-5.70) M/uL Hgb 15.6 (14.0-18.0) gm/dl Hct 46.6 (42.0-52.0) % MCV 98.3 H (81-97) fl MCH 32.9 (27-33) pg MCHC 33.5 (32-36) g/dl RDW 13.6 (11.5-14.5) % Plt Count 199 (130-400) K/uL MPV 8.9 (7.4-10.4) fl Gran % 75.7 (47-80) % Lymphocytes % 8.7 L (16-45) % Monocytes % 5.2 (0-9) % Eosinophils % 10.0 H (0-6) % Basophils % 0.4 (0-6) % Sodium 134 L (136-145) mmol/L Potassium 4.3 (3.4-4.5) mmol/L Chloride 93 L (98-107) mmol/L Carbon Dioxide 29.0 (22-29) mmol/L Anion Gap 12.0 (7-16) BUN 23 (8-23) mg/dL Creatinine 1.5 H (0.7-1.2) mg/dL Estimated GFR 48 mL/min Random Glucose 90 (74-109) mg/dL Calcium 9.7 (8.8-10.2) mg/dL Influenza Type A Ag Negative (NEGATIVE) Influenza Type B Ag Negative (NEGATIVE) Disposition Disposition: Discharge Clinical Impression: Respiratory distress, Bronchitis Disposition: Home, Self-Care Condition: (1) Good Instructions: Acute Bronchitis (ED), Dyspnea (ED) Additional Instructions: follow up with family doctor tomorrow. return sooner if worse. Prescriptions: Amoxicillin 500 mg PO Q8HR #30 capsule Forms: Patient Portal Access Quality - Quality Measures Quality Measures: N/A - Blood Pressure Screening Does Patient Have Any of the Following: No Blood Pressure Classification: Normal BP Reading Systolic Measurement: 109 Diastolic Measurement: 73 Screening for High Blood Pressure: < Normal BP, F/U Not Required > [G8783]
--- NOTE | 2018-08-26 13:44 | RADIOLOGY REPORT ---
EXAM: CHEST, TWO VIEWS HISTORY: DIFFICULTY IN BREATHING. TECHNIQUE: Frontal and lateral views of the chest were performed. Comparison: 12/12/17. FINDINGS: The heart size is normal. The lung elena are clear. No infiltrate or pleural effusion. There is degenerative change in both shoulder girdles and the thoracic spine. IMPRESSION: NO ACUTE PULMONARY DISEASE PROCESS. JOB NUMBER: [id number] MTDD
== END 2018-08-25 14:12 | disposition home or self-care (01) ==
LOC: ER 11:15
DX: R06.03 Acute respiratory distress (principal); J20.9 Acute bronchitis, unspecified; J44.9 Chronic obstructive pulmonary disease, unspecified; I10 Essential (primary) hypertension; Z87.891 Personal history of nicotine dependence
CPT/HCPCS: 71046; 80048; 83880; 85025; 87400; 93005; 93010; 94640; 96374; 99284; J2930

== ENCOUNTER 2018-12-28 08:55 | Day surgery (SDC) | payer MEDICARE ==
--- NOTE | 2018-12-28 06:50 | History and Physical - [place] ---
CHIEF COMPLAINT/HISTORY OF CHIEF COMPLAINT: This patient presents with a history of intractable lumbar radiculopathy. Over time a peripheral nerve stimulator with a generator at the posterior gluteal margin was placed following a spinal cord stimulator which was placed with the generator at the opposite flank. Over time the generator for the peripheral nerve stimulator has failed and the generator because of weight loss has become more prominent and uncomfortable. His spinal cord stimulator appears to be helping, but is not getting all of the extent of the evolving pain pattern into his lower extremities. He is here after appropriate screening for removal of the peripheral nerve generator and replacement of the spinal cord stimulator generator with the new WaveWriter technology. PAST MEDICAL HISTORY: Hypertension and cognitive impairment. PAST SURGICAL HISTORY: Shoulder surgery. MEDICATIONS ON ADMISSION: List to be provided. ALLERGIES: None. FAMILY/PSYCHOSOCIAL HISTORY: Social history - Caffeine. Family history - Diabetes, coronary artery disease, hypertension, and cancer. SYSTEMS REVIEW: The patient is appropriate in no acute distress. The remainder of the systems review is positive for hearing disorder, blood pressure, and cognitive impairment. PHYSICAL EXAMINATION: Height is 5'6", weight is 100 pounds. No vital signs. HEENT: Within normal limits. LUNGS: Clear. HEART: Rapid and regular. ABDOMEN: Nontender. MUSCULOSKELETAL: Examination of the musculoskeletal system shows the peripheral generator in the right posterior gluteal margin. It is quite prominent and obviously painful to palpation. The generator for the stimulator is at the left posterior gluteal margin and intact. Lower extremity functionality is difficult to fully assess. There appears to be a bilateral pain pattern to both extremities somewhat more prominent right. Motor and sensory field function difficult to assess. IMPRESSION: 1. LUMBAR RADICULOPATHY, ICD-10 CODE M54.16 AND M54.17. 2. PERIPHERAL NERVE STIMULATOR INTERNAL GENERATOR AND SPINAL CORD STIMULATOR INTERNAL GENERATOR. PLAN: The patient is here for removal of the peripheral nerve generator without removing the leads. He is here for replacement of the generator for the spinal cord stimulator at the opposite posterior gluteal margin. It was felt because of this patient's level of compromise to keep this as simple as possible. Removing the leads would be a more complicated process and involve more incisions. Removing the generator will be a single incision and relatively quick and easy. The potential risks, side effects, and complications have all been reviewed and discussed. JOB NUMBER: [id number] [facility]
[~2018-12-28 08:55] MED LIST: ACETAMINOPHEN 1,000 MG/100 ML BTL IVPB ONE; CEFAZOLIN 2 Gram 2 GM/50 ML BAG IVPB SCH; FAMOTIDINE 20MG TABLET PO ONE; MECLIZINE 25 MG TABLET PO ONE; METOCLOPRAMIDE 10 MG TABLET PO ONE
[2018-12-28] MEDS ORDERED: LIDOCAINE 2% MDV (20MG/ML) 20ML VIAL IV ONE (08:56)
[2018-12-28] MEDS ORDERED: FENTANYL PF 100MCG/2ML VIAL IV ONE (08:56)
[2018-12-28] MEDS ORDERED: EPHEDRINE SULFATE 50 MG/ML ML IV ONE (08:56)
[2018-12-28] MEDS ORDERED: PROPOFOL 10 MG/ML VIAL IV ONE (08:56)
[2018-12-28] MEDS ORDERED: RINGERS SOLUTION,LACTATED 1,000 ML IV ONE (09:45)
[2018-12-28] MEDS ORDERED: BUPIVACAINE 0.5% W/EPI MPF 30 ML VIAL SQ ONE ×2 (11:59)
[2018-12-28] MEDS ORDERED: LIDOCAINE 1% W/EPI 1:100,000 MDV 20 ML VIAL SQ ONE ×2 (11:59)
[2018-12-28] MEDS ORDERED: CEFAZOLIN 0.5 G in 0.9 % SODIUM CHLORIDE 1000ML 500 ML IVP ONE (12:00)
[2018-12-28] MEDS ORDERED: PATIENT OWN MED: PROAIR HFA INH PRN (13:53)
[2018-12-28] MEDS ORDERED: DIPHENHYDRAMINE HCL 25 MG CAPSULE PO PRN ×2 (14:00)
[2018-12-28] MEDS ORDERED: METOCLOPRAMIDE 10 MG TABLET PO PRN (14:00)
[2018-12-28] MEDS ORDERED: OXYCODONE/APAP 10MG-325MG TABLET PO PRN ×2 (14:00)
[2018-12-28] MEDS ORDERED: DIPHENHYDRAMINE HCL 50 MG/ML VIAL IVP PRN ×2 (14:00)
[2018-12-28] MEDS ORDERED: METOCLOPRAMIDE HCL 10 MG/2 ML VIAL IVP PRN (14:00)
[2018-12-28] MEDS ORDERED: TEMAZEPAM 15 MG CAPSULE PO PRN ×2 (14:00)
[2018-12-28] MEDS ORDERED: HYDROMORPHONE HCL 2 MG/ML VIAL IM PRN ×2 (14:00)
[2018-12-28] MEDS ORDERED: SENNOSIDES/DOCUSATE SODIUM UD CAPSULE PO PRN ×2 (14:00)
[2018-12-28] MEDS ORDERED: AL HYDROX/MAG HYDROX 30ML UD PO PRN (14:00)
[2018-12-28] MEDS ORDERED: ACETAMINOPHEN 325 MG TAB PO PRN ×2 (14:00)
[2018-12-28] MEDS ORDERED: HYDROCODONE/APAP 7.5/325MG TABLET PO PRN ×2 (14:00)
[2018-12-28] MEDS: LEVODOPA PO SCH ×2 (15:37→18:32)
[2018-12-28] MEDS: CARBIDOPA PO SCH ×2 (15:37→18:32)
[2018-12-28] MEDS: CEFAZOLIN 2 Gram 2 GM/50 ML BAG IVPB SCH (19:59)
[2018-12-28] MEDS: MEMANTINE 10 MG PO SCH (21:23)
[2018-12-28] MEDS: CLOBETASOL 0.05% TP SCH (21:25)
[2018-12-28] MEDS ORDERED: CARBIDOPA LEVODOPA PO SCH (22:00)
[2018-12-28] MEDS ORDERED: 0.9 % SODIUM CHLORIDE 10ML SYR IVP SCH (22:00)
[2018-12-28] MEDS ORDERED: SYMBICORT INH SCH (22:00)
[2018-12-28] MEDS ORDERED: MYRBETRIQ 50 MG PO SCH (22:00)
[2018-12-28] MEDS ORDERED: PATIENT OWN MED: TRAZODONE 50 MG PO SCH (22:00)
[2018-12-28] MEDS ORDERED: MELATONIN 10 MG PO SCH (22:00)
[2018-12-28] MEDS: IPRATROPIUM/ALBUTEROL (0.5MG/3MG) NEB INH SCH (22:37)
[2018-12-29] MEDS: CEFAZOLIN 2 Gram 2 GM/50 ML BAG IVPB SCH (03:27)
[2018-12-29] MEDS: LEVODOPA PO SCH ×2 (06:18→09:44)
[2018-12-29] MEDS: CARBIDOPA PO SCH ×2 (06:18→09:44)
[2018-12-29] MEDS ORDERED: PATIENT OWN MED: OMEPRAZOLE 40 MG PO SCH (07:00)
[2018-12-29] MEDS: IPRATROPIUM/ALBUTEROL (0.5MG/3MG) NEB INH SCH (09:43)
[2018-12-29] MEDS: CLOBETASOL 0.05% TP SCH (09:44)
[2018-12-29] MEDS: MEMANTINE 10 MG PO SCH (09:45)
[2018-12-29] MEDS ORDERED: GUAIFENESIN 1,200 MG TABLET PO SCH (10:00)
[2018-12-29] MEDS ORDERED: BISOPROLOL PO SCH (10:00)
[2018-12-29] MEDS ORDERED: PATIENT OWN MED: ESCITALOPRAM 10 MG PO SCH (10:00)
[2018-12-29] MEDS ORDERED: HCTZ PO SCH (10:00)
[2018-12-29] MEDS ORDERED: DONEPEZIL 10 MG PO SCH (10:00)
[2018-12-29] MEDS ORDERED: BISOPROLOL HCTZ PO SCH (22:00)
--- NOTE | 2018-12-30 07:50 | Operative Note ---
DATE OF SURGERY: 12/28/2018 PREOPERATIVE DIAGNOSES: 1. Intractable lumbar radiculopathy, ICD10 code M54.16 and M54.17. 2. Nonfunctional peripheral nerve stimulator with right internal pulse generator. 3. Spinal cord stimulator with depleted internal pulse generator left posterior gluteal margin. OPERATION: 1. Fluoroscopic-guided incision and subcutaneous dissection and removal of nonfunctional right peripheral nerve generator posterior gluteal margin. 2. Incision and subcutaneous dissection and removal and replacement of left internal pulse generator for spinal cord stimulator with [employer] WaveWriter programmable rechargeable generator. SURGEON: Ruben Burrows, ANESTHESIA: Local with sedation. ANESTHESIA PROVIDER: Marissa Kaufman INDICATION: This patient presents with intractable lumbar radiculopathy. Due to the failure of all therapies, previous implants including a peripheral nerve stimulator with a generator at the right posterior gluteal margin, and a spinal cord stimulator with the pulse generator to the left posterior gluteal margin. The peripheral nerve stimulator has been nonfunctional. The generator at the right posterior gluteal margin is troublesome for the patient and painful. He is here for removal of the generator without removing leads. He has also a spinal cord stimulator with a generator at the left posterior gluteal margin which has been unable to adjust to the changing patterns of his pain with pain extending higher as well as lower with respect to his back and extremities. He is here for a generator change to the newer [employer] internal pulse generator WaveWriter technology which has more programs and the ability to interface simultaneously different programs. This is an attempt to gain control of those areas his previous system was unable to control. PROCEDURE: Intravenous line, vital signs monitoring, IV sedation. Prepped and draped in sterile technique. Patient positioned prone. Sterile prep. The nonfunctional generator at the right posterior gluteal margin noted. Skin infiltrated, incision made, subcutaneous dissection was conducted to the generator. Generator from the indwelling leads. Antibiotic irrigation. Bovie for hemostasis. The incision was then closed using Stratafix suture, 2-0 fascia, 3-0 skin, Dermabond closure. The left posterior gluteal margin generator for the spinal cord stimulator noted. Skin infiltrated, incision made, subcutaneous dissection was conducted. The old generator was removed and the new [employer] non-rechargeable was then interfaced to the current system. The non-rechargeable is being used in an attempt to eliminate the effort and need for the patient to recharge his system, which has been somewhat problematic. The new non-rechargeable generator was then interfaced with his indwelling leads. The generator was placed into the pouch, and the incision was closed using Stratafix suture 2-0 fascia, 3-0 skin. Dermabond closure. He was transported to the recovery room stable. No side effects from anesthesia or sedation. Because of his age and medical history, he will be kept overnight for observation and discharged in the morning. DISCHARGE INSTRUCTIONS: 1. Sites will remain clean and dry although the Dermabond will allow showering. No sitting in water. 2. Standard medications resumed including the antibiotic Levaquin. He will take 500 mg once a day for 14 days. 3. The office will contact the patient in the next 12-24 hours to set up a time in the next 7-10 days for us to evaluate the sites. Until then, activity should stay low. All other instructions provided and numbers to contact if problems given. He will be discharged in the morning. ALICIA
== END 2018-12-29 10:30 | disposition home or self-care (01) ==
LOC: SUR 08:55 → MEDSURG 13:06 → SUR 12-29 10:30
PROVIDERS: ATTEND Pain Medicine Interventional Pain Medicine
DX: M54.16 Radiculopathy, lumbar region (principal); M54.17 Radiculopathy, lumbosacral region; I10 Essential (primary) hypertension; G20 Parkinson's disease; F03.90 Unspecified dementia, unspecified severity, without behavioral disturbance, psychotic disturbance, mood disturbance, and anxiety; J44.9 Chronic obstructive pulmonary disease, unspecified
CPT/HCPCS: 63685; 00300; 95972; 94640 ×2; J3010; J0690 ×2; J7030; J7120

== ENCOUNTER 2019-02-14 20:33 | Emergency (ER) | payer MEDICARE ==
[2019-02-14] MEDS ORDERED: IPRATROPIUM/ALBUTEROL (0.5MG/3MG) NEB INH ONE (20:57)
[2019-02-14] MEDS ORDERED: METHYLPREDNISOLONE PF 125MG/VIAL IVP ONE (20:57)
[2019-02-14 21:28] LABS: ABSOLUTE NEUTROPHIL COUNT 5.83; HEMATOCRIT 40.8 % (42.0-52.0); HEMOGLOBIN 13.4 gm/dl (14.0-18.0); MEAN CELL VOLUME 98.3 fl (81-97); MEAN CORPUSCULAR HGB CONC 32.8 g/dl (32-36); MEAN PLATELET VOLUME 8.9 fl (7.4-10.4); PLATELET COUNT 229 K/uL (130-400); RED BLOOD COUNT 4.15 M/uL (4.40-5.70); RED CELL DISTRIBUTION WIDTH 13.7 % (11.5-14.5); WHITE BLOOD COUNT W/O DIFF 7.1 K/uL (4.2-12.2)
--- NOTE | 2019-02-14 21:36 | Emergency Department Record ---
History of Present Illness - General Chief Complaint: Shortness of breath Stated Complaint: LY Time Seen by Provider: 02/14/19 20:50 Source: Patient, Family Mode of Arrival: Ambulatory Limitations: No limitations - History of Present Illness Initial Comments: pt c/o icreasing sob today. no productivity w cough. no fever MD Complaint: Shortness of breath Onset/Timin -: Hour(s) Consistency: Getting worse Improves With: Bronchodilators Worsens With: Exertion Known History Of: COPD Associated Symptoms: Denies other symptoms Treatments Prior to Arrival: Bronchodilator - Related Data Previous Rx's Medication Instructions Recorded Polyethylene Glycol 3350 [Miralax] 1 packet PO DAILY #30 packet 11/07/15 Allergies Allergy/AdvReac Type Severity Reaction Status Date / Time No Known Drug Allergies Allergy Unknown Verified 08/25/18 11:21 [NO KNOWN DRUG ALLERGIES] Travel Screening - Travel/Exposure Within Last 30 Days Have you traveled within the last 30 days?: No - Travel/Exposure Within Last Year Have you traveled outside the [place] in the last year?: No - Additonal Travel Details Have you been exposed to anyone with a communicable illness?: No - Travel Symptoms Symptom Screening: None Review of Systems Reviewed: No additional complaints except as noted below Constitutional: Reports: As per HPI. Denies: Chills, Fever, Malaise, Night sweats, Weakness, Weight change Eyes: Reports: As per HPI. Denies: Eye discharge, Eye pain, Photophobia, Vision change ENT: Reports: As per HPI. Denies: Congestion, Dental pain, Ear pain, Epistaxis, Hearing loss, Throat pain Respiratory: Reports: As per HPI, Cough, Dyspnea. Denies: Hemoptysis, Stridor, Wheezes Cardiovascular: Reports: As per HPI. Denies: Arrhythmia, Chest pain, Dyspnea on exertion, Edema, Murmurs, Orthopnea, Palpitations, Paroxysmal nocturnal dyspnea, Rheumatic Fever, Syncope Endocrine: Reports: As per HPI. Denies: Fatigue, Heat or cold intolerance, Polydipsia, Polyuria Gastrointestinal: Reports: As per HPI. Denies: Abdominal pain, Constipation, Diarrhea, Hematemesis, Hematochezia, Melena, Nausea, Vomiting Genitourinary: Reports: As per HPI. Denies: Dysuria, Frequency, Hematuria, Incontinence, Retention, Testicular pain, Testicular mass, Urgency Musculoskeletal: Reports: As per HPI. Denies: Arthralgia, Back pain, Gout, Joint swelling, Myalgia, Neck pain Skin: Reports: As per HPI. Denies: Bruising, Change in color, Change in hair/nails, Lesions, Pruritus, Rash Neurological: Reports: As per HPI. Denies: Abnormal gait, Confusion, Headache, Numbness, Paresthesias, Seizure, Tingling, Tremors, Vertigo, Weakness Psychiatric: Reports: As per HPI. Denies: Anxiety, Auditory hallucinations, Depression, Homicidal thoughts, Suicidal thoughts, Visual hallucinations Hematological/Lymphatic: Reports: As per HPI. Denies: Anemia, Blood Clots, Easy bleeding, Easy bruising, Swollen glands Past Medical History - SOCIAL HISTORY Smoking Status: Former smoker Alcohol Use: None Drug Use: None - RESPIRATORY Hx Respiratory Disorders: Yes Hx COPD: Yes Hx Pneumonia: Yes (august 2018) Hx Sleep Apnea: (tested for) - CARDIOVASCULAR Hx Cardio Disorders: Yes Hx Hypertension: Yes (good control w meds) - NEURO Hx Neuro Disorders: Yes Hx Dementia: Yes (on Aricept) Hx Parkinson's Disease: Yes - GI Hx GI Disorders: Yes Hx Reflux: Yes Hx Rectal Bleeding: Yes (has hemorrhoids internal-no bleed now) Hx of Polyps: Yes - Hx Genitourinary Disorders: Yes Hx Prostate Problems: Yes (? sees Dr Mckoy) - ENDOCRINE Hx Endocrine Disorders: No - MUSCULOSKELETAL Hx Musculoskeletal Disorders: Yes Hx Back Injury: Yes ("4 yrs ago his heel caught a stone & fell -walking trail in [place].) - PSYCH Hx Psych Problems: Yes Hx Depression: Yes - HEMATOLOGY/ONCOLOGY Hx Hematology/Oncology Disorders: Yes Hx Bruising: Yes (easy to bruise) Hx Cancer: Yes (skin cancer removed) Family Medical History Any Significant Family History?: Yes Hx Cancer: Brother/Sister Hx Diabetes: Brother/Sister Hx Heart Disease: Father, Mother, Brother/Sister Hx HTN: Father Hx Stroke: Father Physical Exam - General General Appearance: Alert, Cooperative, Mild distress - Head Head exam: Normal inspection - Eye Eye exam: Normal appearance, PERRL, EOMI Pupils: Normal accommodation - ENT ENT exam: Normal exam, Mucous membranes moist, Normal external ear exam, Normal orophraynx Ear exam: Normal external inspection. negative: External canal tenderness Nasal Exam: Normal inspection. negative: Discharge, Sinus tenderness Mouth exam: Normal external inspection, Tongue normal Teeth exam: Normal inspection. negative: Dental caries Throat exam: Normal inspection. negative: Tonsillar erythema, Tonsillar exudate - Neck Neck exam: Normal inspection, Full ROM. negative: Tenderness - Respiratory Respiratory exam: Decreased breath sounds. negative: Respiratory distress - Cardiovascular Cardiovascular Exam: Regular rate, Normal rhythm, Normal heart sounds - GI/Abdominal GI/Abdominal exam: Soft, Normal bowel sounds. negative: Tenderness - Rectal Rectal exam: Deferred - exam: Deferred - Extremities Extremities exam: Normal inspection, Full ROM, Normal capillary refill. negative: Tenderness - Back Back exam: Reports: Normal inspection, Full ROM. Denies: Muscle spasm, Rash noted, Tenderness - Neurological Neurological exam: Alert, CN II-XII intact, Normal gait, Oriented X3 - Psychiatric Psychiatric exam: Normal affect, Normal mood - Skin Skin exam: Dry, Intact, Normal color, Warm Course Vital Signs 02/14/19 02/14/19 20:35 21:03 Temperature 98.6 F Pulse Rate 73 71 Respiratory 24 16 Rate Blood Pressure 198/106 Blood Pressure 140/81 [Left Arm] Pulse Ox 98 96 - Reevaluation(s) Reevaluation #1: 02/14/19 23:14 pt feels better Medical Decision Making - Lab Data Result diagrams: 02/14/19 20:30 02/14/19 20:30 Disposition Disposition: Discharge Clinical Impression: Acute exacerbation of chronic obstructive pulmonary disease (COPD) Disposition: Home, Self-Care Condition: (1) Good Instructions: COPD (Chronic Obstructive Pulmonary Disease) (ED) Additional Instructions: follow up with family doctor tomorrow. return sooner if worse. Forms: Patient Portal Access Quality - Quality Measures Quality Measures: N/A - Blood Pressure Screening Does Patient Have Any of the Following: Active Dx of HTN Blood Pressure Classification: Hypertensive Reading Systolic Measurement: 198 Diastolic Measurement: 106 Screening for High Blood Pressure: Patient Exclusion, Hx of HTN [G9744]
[2019-02-14 21:37] LABS: CREATININE 1.5 mg/dL (0.7-1.2)
[2019-02-14 21:38] LABS: MEAN CORPUSCULAR HEMOGLOBIN 32.2 pg (27-33)
[2019-02-14 21:59] LABS: PLATELET ESTIMATE NORMAL (NORMAL)
[2019-02-14 22:09] LABS: URINE APPEARANCE CLEAR; URINE BILIRUBIN NEGATIVE (NEGATIVE); URINE BLOOD NEGATIVE (NEGATIVE); URINE COLOR YELLOW; URINE GLUCOSE (UA) NEGATIVE (NEGATIVE); URINE KETONE NEGATIVE (NEGATIVE); URINE LEUKOCYTE ESTERASE NEGATIVE (NEGATIVE); URINE NITRITE NEGATIVE (NEGATIVE); URINE PROTEIN NEGATIVE (NEGATIVE)
== END 2019-02-14 23:37 | disposition home or self-care (01) ==
LOC: ER 20:33
DX: J44.1 Chronic obstructive pulmonary disease with (acute) exacerbation (principal); R06.02 Shortness of breath; R53.1 Weakness; I10 Essential (primary) hypertension; Z87.891 Personal history of nicotine dependence
CPT/HCPCS: 71046; 80048; 81003; 85027; 93005; 93010; 94640; 96374; 99284; J2930

== ENCOUNTER 2019-03-03 22:18 | Emergency (ER) | payer MEDICARE ==
--- NOTE | 2019-03-03 22:27 | Emergency Department Record ---
History of Present Illness - General Stated Complaint: FALL INJURY Time Seen by Provider: 03/03/19 22:22 Source: EMS Mode of Arrival: Stretcher Limitations: Other (Dementia) - History of Present Illness Initial Comments: 83 yo male presents to ED for evaluation following an unwitnessed fall in the bathroom. Patient has a history of dementia and parkinson's, does not take anticoagulation medications at his baseline. History is limited due to dementia. MD Complaint: Fall Fall From: Standing When Fall Occurred: Unsure Fall Witnessed: No Place Fall Occurred: Home Loss of Consciousness: Unsure Prolonged Down Time?: Unclear Location: Head - Haworth Coma Scale Eye Response: (4) Open spontaneously Motor Response: (6) Obeys commands Verbal Response: (4) Confused conversation Haworth Total: 14 - Related Data Home Medications Medication Instructions Recorded Confirmed Last Taken Carbidopa/Levodopa [Sinemet Cr 1 each PO QHS 03/03/19 03/03/19 03/03/19 50-200 Tablet] Clobetasol Propionate/Emoll 15 gm TP TID 03/03/19 03/03/19 03/03/19 [Clobetasol Emollient 0.05% Crm] Guaifenesin [Mucinex] 1,200 mg PO DAILY 03/03/19 03/03/19 03/03/19 Ipratropium/Albuterol [Duoneb] 3 ml IH BID 03/03/19 03/03/19 03/03/19 Previous Rx's Medication Instructions Recorded Polyethylene Glycol 3350 [Miralax] 1 packet PO DAILY #30 packet 11/07/15 Allergies Allergy/AdvReac Type Severity Reaction Status Date / Time No Known Drug Allergies Allergy Unknown Verified 08/25/18 11:21 [NO KNOWN DRUG ALLERGIES] Review of Systems ROS unobtainable: Due to mental status Past Medical History - SOCIAL HISTORY Smoking Status: Former smoker Drug Use: None - RESPIRATORY Hx Respiratory Disorders: Yes Hx COPD: Yes Hx Pneumonia: Yes (august 2018) Hx Sleep Apnea: (tested for) - CARDIOVASCULAR Hx Cardio Disorders: Yes Hx Hypertension: Yes (good control w meds) - NEURO Hx Neuro Disorders: Yes Hx Dementia: Yes (on Aricept) Hx Parkinson's Disease: Yes - GI Hx GI Disorders: Yes Hx Reflux: Yes Hx Rectal Bleeding: Yes (has hemorrhoids internal-no bleed now) Hx of Polyps: Yes - Hx Genitourinary Disorders: Yes Hx Prostate Problems: Yes (? sees Dr Mckoy) - ENDOCRINE Hx Endocrine Disorders: No - MUSCULOSKELETAL Hx Musculoskeletal Disorders: Yes Hx Back Injury: Yes ("4 yrs ago his heel caught a stone & fell -walking trail in [place].) - PSYCH Hx Psych Problems: Yes Hx Depression: Yes - HEMATOLOGY/ONCOLOGY Hx Hematology/Oncology Disorders: Yes Hx Bruising: Yes (easy to bruise) Hx Cancer: Yes (skin cancer removed) Family Medical History Hx Cancer: Brother/Sister Hx Diabetes: Brother/Sister Hx Heart Disease: Father, Mother, Brother/Sister Hx HTN: Father Hx Stroke: Father Physical Exam - General General Appearance: Alert, Cooperative, Mild distress Limitations: Other (Dementia) - Head Head exam: Atraumatic, Normocephalic, Normal inspection Head exam detail: Abrasion (Small abrasion right anterior scalp region.). negative: Contusion, Sanchez's sign, General tenderness, Hematoma, Laceration - Eye Eye exam: Normal appearance. negative: Conjunctival injection, Periorbital swelling, Periorbital tenderness, Scleral icterus - ENT Ear exam: negative: Auricular hematoma, Auricular trauma Nasal Exam: negative: Active bleeding, Discharge, Dried blood, Foreign body Mouth exam: negative: Drooling, Laceration, Muffled voice, Tongue elevation - Neck Neck exam: Other (Cervical collar in place) - Respiratory Respiratory exam: Normal lung sounds bilaterally. negative: Rales, Respiratory distress, Rhonchi, Stridor - Cardiovascular Cardiovascular Exam: Regular rate, Normal rhythm, Normal heart sounds - GI/Abdominal GI/Abdominal exam: Soft. negative: Rebound, Rigid, Tenderness - Rectal Rectal exam: Deferred - exam: Deferred - Extremities Extremities exam: Normal inspection. negative: Pedal edema, Tenderness - Back Back exam: Denies: CVA tenderness (R), CVA tenderness (L) - Neurological Neurological exam: Alert, Oriented X3, Other (No gross motor deficits present on examination) - Psychiatric Psychiatric exam: Normal affect, Normal mood - Skin Skin exam: Abrasion, Normal color Type of lesion: abrasion Course - Reevaluation(s) Reevaluation #1: 03/03/19 23:57 CT Brain: Atrophy/chronic white matter changes No acute traumatic injury identified CT Cervical Spine: No acute fracture Multilevel degenerative disease and facet arthropathy Patient and his were updated on all results, patient appears stable for discharge back to [facility] this evening. Disposition Disposition: Discharge Clinical Impression: Fall from standing Qualifiers: Encounter type: initial encounter Qualified Code(s): W19.XXXA - Unspecified fall, initial encounter Scalp contusion Qualifiers: Encounter type: initial encounter Qualified Code(s): S00.03XA - Contusion of scalp, initial encounter Disposition: Home, Self-Care Condition: (2) Stable Instructions: Fall Prevention for Older Adults (ED) Additional Instructions: Return to ED if your symptoms worsen or if you have any concerns. Follow-up with your family doctor in 3-5 days as directed. Time of Disposition: 23:19 Quality - Quality Measures Quality Measures: N/A, Blunt Head Trauma (>2yr) - Vipul Coma Scale Vipul Coma Scale: Haworth Coma Scale Eye Response: (4) Open spontaneously Motor Response: (6) Obeys commands Verbal Response: (4) Confused conversation Vipul Total: 14 - Blunt Head Trauma - Adult Quality Measure: Measure #415: Utilization of CT for Minor Blunt Head Trauma ICD10 Codes Entered: Yes Was CT ordered: Yes Does Patient Have Any of the Following: No Exclusions Patient Presented Within 24 Hours of Injury: Yes Vipul Score: [address] for Minor Blunt Head Trauma: < CT Done, Appropriate Indication > [G9529] Additional Inclusion Criteria: More than 24hrs (OR) GCS not 15 (OR) CT not ordered. Indications For CT: Age 65 Years and Older Not Eligible Reason: GCS Score Less Than 15 - Blood Pressure Screening Does Patient Have Any of the Following: No Blood Pressure Classification: Pre-Hypertensive BP Reading Systolic Measurement: 148 Diastolic Measurement: 89 Screening for High Blood Pressure: < Pre-Hypertensive BP, F/U Documented > [G8950] Pre-Hypertensive Follow-up Interventions: Referral to alternative/primary care provider.
--- NOTE | 2019-03-05 20:43 | CT SCAN REPORT ---
EXAM: CT SCAN HEAD WO CONTRAST HISTORY: POSTERIOR HEADACHE. FALL. TECHNIQUE: Routine noncontrast CT examination of the head. COMPARISON: CT head without contrast dated 04/24/2018. FINDINGS: The subarachnoid spaces remain mildly prominent consistent with age- related atrophy. The ventricles are not grossly enlarged. No new suspicious area of abnormally increased or decreased attenuation is noted throughout the brain substance. Minor periventricular white matter lucencies are scattered in each cerebral hemisphere consistent with chronic hypervascular ischemia, stable. There is a small left choroidal fissure cyst redemonstrated. No new abnormal extra-axial fluid collection. No acute skull abnormality. The visualized paranasal sinuses and mastoid air cells are clear. Post cataract surgery changes are again noted bilaterally. The orbits are otherwise unremarkable. IMPRESSION: 1. NO CT EVIDENCE OF AN ACUTE INTRACRANIAL ABNORMALITY NOR SKULL FRACTURE WITHOUT CHANGE IN APPEARANCE OF THE BRAIN SINCE 04/24/2019. 2. CEREBRAL AND CEREBELLAR ATROPHY REDEMONSTRATED. MILD WHITE MATTER LUCENCIES AGAIN NOTED IN EACH CEREBRAL HEMISPHERE CONSISTENT WITH CHRONIC SMALL VESSEL ISCHEMIA. JOB NUMBER: [id number] MTDD
--- NOTE | 2019-03-05 21:24 | CT SCAN REPORT ---
EXAM: CT SCAN CERVICAL SPINE WO CONTRAST HISTORY: FALL WITH TRAUMA TO BACK OF HEAD. HEADACHE. TECHNIQUE: Thin-collimation helical CT examination of the cervical spine is performed without intravenous contrast. Coronal and sagittal reformatted images are generated and reviewed. COMPARISON: CT cervical spine without contrast dated 04/24/2018. FINDINGS: There is straightening of the normal cervical lordosis. There is minimal anterolisthesis of C3 on C4 redemonstrated. The vertebral bodies are otherwise normal in alignment and height, unchanged. No acute fracture, destructive bone lesion, nor prevertebral soft tissue swelling. Severe hypertrophic degenerative changes of the atlantodental joint redemonstrated. Multilevel degenerative disc/degenerative endplate changes are again noted, most pronounced at the C4-C5 through the C7-T1 levels, where the changes are moderate to advanced. Multilevel bilateral facet arthropathy is identified, most pronounced at the mid to upper levels, where the changes are moderate to advanced. Multilevel bilateral neural foraminal narrowing is again suggested due to uncovertebral joint spurring and facet arthropathy. This pattern does not appear grossly changed. No new cervical mass nor adenopathy. There are hypertrophic degenerative changes of the sternoclavicular joints. The upper lungs are clear. IMPRESSION: 1. NO ACUTE FRACTURE, SUSPICIOUS SUBLUXATION, NOR PREVERTEBRAL SOFT TISSUE SWELLING. 2. MULTILEVEL DEGENERATIVE CHANGES REDEMONSTRATED, GROSSLY STABLE SINCE 04/24/2018. JOB NUMBER: [id number] MTDD
== END 2019-03-04 00:23 | disposition home or self-care (01) ==
LOC: ER 22:18
DX: S00.03XA Contusion of scalp, initial encounter (principal); R51 Headache; W19.XXXA Unspecified fall, initial encounter; Y92.002 Bathroom of unspecified non-institutional (private) residence as the place of occurrence of the external cause; I10 Essential (primary) hypertension; J44.9 Chronic obstructive pulmonary disease, unspecified; F03.90 Unspecified dementia, unspecified severity, without behavioral disturbance, psychotic disturbance, mood disturbance, and anxiety; Z87.891 Personal history of nicotine dependence
CPT/HCPCS: 70450; 72125; 99284

== ENCOUNTER 2019-03-06 17:33 | Inpatient (IN) | payer MEDICARE ==
--- NOTE | 2019-03-06 18:00 | Emergency Department Record ---
History of Present Illness - General Chief complaint: Male Urogenital Problem Stated complaint: UTI? NOT HIMSELF Time Seen by Provider: 03/06/19 17:37 Source: Family Mode of Arrival: Wheelchair Limitations: Altered mental status - History of Present Illness Initial comments: The patient is here with his due to not acting himself today. He has recent ly started living at [facility] 4 days ago and today per staff was angry, belligerent, trying to hit staff, and paranoid. The hx is obtained from the patient's and she obtained it from the [facility] staff. The staff felt the patient may have a UTI so a urine was sent here to the lab that was found to be normal. The patient also was here in the ER 3 days ago due to a fall and had a neg Head and Cervical CT. He does have a hx of significant dementia and Parkinson's dz and does walk with a walker. There is no hx of fall since the last episode 3 days ago and he does not take blood thinners. MD Complaint: Other Radiation: None Improves with: None Worsens with: None Reports: Denies other symptoms - Related Data Home Medications Medication Instructions Recorded Confirmed Last Taken Bismuth Subsalicylate 262 mg PO BID 03/06/19 03/06/19 03/06/19 [Pepto-Bismol] Donepezil HCl 10 mg PO DAILY 03/06/19 03/06/19 Unknown Escitalopram Oxalate [Lexapro] 10 mg PO DAILY 03/06/19 03/06/19 Unknown Vitamin B Complex/Folic Acid 0.4 mg PO DAILY 03/06/19 03/06/19 03/06/19 [B-Complex Tablet] Previous Rx's Medication Instructions Recorded Polyethylene Glycol 3350 [Miralax] 1 packet PO DAILY #30 packet 11/07/15 Allergies Allergy/AdvReac Type Severity Reaction Status Date / Time No Known Drug Allergies Allergy Unknown Verified 03/06/19 17:51 [NO KNOWN DRUG ALLERGIES] Travel Screening - Travel/Exposure Within Last 30 Days Have you traveled within the last 30 days?: No Review of Systems Constitutional: Denies: Chills, Fever, Malaise Eyes: Denies: Eye discharge ENT: Denies: Congestion Respiratory: Denies: Cough, Dyspnea Cardiovascular: Denies: Chest pain Endocrine: Reports: Fatigue Gastrointestinal: Denies: Nausea Genitourinary: Denies: Dysuria Musculoskeletal: Denies: Arthralgia Skin: Denies: Bruising Past Medical History - SOCIAL HISTORY Smoking Status: Former smoker Alcohol Use: None Drug Use: None - RESPIRATORY Hx Respiratory Disorders: Yes Hx COPD: Yes Hx Pneumonia: Yes - CARDIOVASCULAR Hx Cardio Disorders: Yes Hx Hypertension: Yes (good control w meds) - NEURO Hx Neuro Disorders: Yes Hx Dementia: Yes Hx Parkinson's Disease: Yes - GI Hx GI Disorders: Yes Hx Reflux: Yes Hx Rectal Bleeding: Yes Hx of Polyps: Yes - Hx Genitourinary Disorders: Yes Hx Prostate Problems: Yes - ENDOCRINE Hx Endocrine Disorders: No - MUSCULOSKELETAL Hx Musculoskeletal Disorders: Yes Hx Back Injury: Yes - PSYCH Hx Psych Problems: Yes Hx Depression: Yes - HEMATOLOGY/ONCOLOGY Hx Hematology/Oncology Disorders: Yes Hx Bruising: Yes Hx Cancer: Yes (skin cancer removed) Family Medical History Any Significant Family History?: Yes Hx Cancer: Brother/Sister Hx Diabetes: Brother/Sister Hx Heart Disease: Father, Mother, Brother/Sister Hx HTN: Father Hx Stroke: Father Physical Exam - General General Appearance: Alert, Cooperative, No acute distress - Head Head exam: Atraumatic, Normocephalic, Normal inspection - Eye Eye exam: Normal appearance, PERRL - ENT Throat exam: Normal inspection. negative: Tonsillar erythema, Tonsillar exudate - Neck Neck exam: Normal inspection, Full ROM. negative: Tenderness - Respiratory Respiratory exam: Normal lung sounds bilaterally. negative: Respiratory distress - Cardiovascular Cardiovascular Exam: Regular rate, Normal rhythm, Normal heart sounds. negative: Diastolic murmur - GI/Abdominal GI/Abdominal exam: Soft, Normal bowel sounds. negative: Rebound, Rigid, Tenderness - Extremities Extremities exam: Normal inspection, Full ROM, Normal capillary refill. negative: Tenderness - Neurological Neurological exam: Abnormal gait (chronic. Uses walker.), Alert. negative: Altered, Motor sensory deficit, Normal gait, Oriented X3 (The patient is oriented to name and place but not age or date. His states this is normal for him.) - Psychiatric Psychiatric exam: Flat affect. negative: Anxious Course Vital Signs 03/06/19 17:46 Temperature 98.0 F Pulse Rate 78 Respiratory 20 Rate Blood Pressure 195/95 Pulse Ox 98 - Reevaluation(s) Reevaluation #1: The patient is doing well at this time. He denies any CP, SOB, or LY and appears to be back to normal. I did discuss the issues with the family and due to the low sodium and borderline cardiac enzymes I did recommend admission here at [facility]. The patient had similar cardiac enzymes in December of 2017 and was tra nsferred to [facility] and had a normal workup and discharge after a short stay admission. The family would like the patient to be a full code also. The patient has been falling recently and denies any new shoulder pain. On his CXR it appears that he has a chronically subluxed humeral head. The patient presently is denying any pain or discomfort and it moving it normally. I will order a L shoulder xray and it will be followed up by Jyothi (JUAN) after admission. I also did discuss the issues with Jyothi and she did accept the admission for Dr. Adam. 03/06/19 19:16 Medical Decision Making - Data Complexity MDM Data: Labs Ordered and/or Reviewed, X-Ray Ordered and/or Reviewed, EKG Ordered and/or Reviewed - Lab Data Result diagrams: 03/07/19 06:26 03/06/19 18:00 - EKG Data -: EKG Interpreted by De EKG: No Acute Changes (NSR at 74, LAFB, Neg for ischemic changes.) - Radiology Data Radiology results: Report reviewed (CXR: Neg for acute changes. Chronic appearing L humeral head subluxation.) Disposition Disposition: Admit Clinical Impression: Hyponatremia Disposition: Still a Patient at [facility] Decision to Admit: Admit from ER Decision to Admit Date: 03/06/19 Decision to Admit Time: 19:21 Accepting Physician: Kia Time Discussed w/Accepting Physician: 19:21 Condition: (2) Stable Time of Disposition: 19:21 Quality - Quality Measures Quality Measures: N/A - Blood Pressure Screening View Details: Yes Does Patient Have Any of the Following: Active Dx of HTN Blood Pressure Classification: Hypertensive Reading Systolic Measurement: 195 Diastolic Measurement: 95 Screening for High Blood Pressure: Patient Exclusion, Hx of HTN [G9744]
[2019-03-06 18:07] LABS: ABSOLUTE NEUTROPHIL COUNT 4.35; BASO % 0.3 % (0-6); EOS % 2.4 % (0-6); GRAN % 74.8 % (47-80); HEMOGLOBIN 12.9 gm/dl (14.0-18.0); LYMPH % 8.8 % (16-45); MEAN CELL VOLUME 94.5 fl (81-97); MEAN CORPUSCULAR HGB CONC 33.9 g/dl (32-36); MEAN PLATELET VOLUME 8.3 fl (7.4-10.4); MONO % 13.7 % (0-9); PLATELET COUNT 178 K/uL (130-400); RED BLOOD COUNT 4.02 M/uL (4.40-5.70); RED CELL DISTRIBUTION WIDTH 13.3 % (11.5-14.5); WHITE BLOOD COUNT W/O DIFF 5.8 K/uL (4.2-12.2)
[2019-03-06 18:19] LABS: BLOOD UREA NITROGEN 26 mg/dL (8-23); CREATININE 1.2 mg/dL (0.7-1.2); EST GLOMERULAR FILTRATION RATE > 60 mL/min
[2019-03-06 18:20] LABS: TOTAL PROTEIN 6.3 g/dL (6.6-8.7)
[2019-03-06 18:22] LABS: GLUCOSE,RANDOM 115 mg/dL (74-109)
[2019-03-06 18:25] LABS: ALB/GLOB RATIO 1.9 (1.1-1.8); ALBUMIN 4.1 g/dL (4.0-5.0); ALKALINE PHOSPHATASE 86 U/L (40-129); ALT/SGPT < 5 U/L (<41); AST/SGOT 39 U/L (10.0-50.0); CREATINE PHOSPHOKINASE 364 U/L (39-308)
[2019-03-06 18:28] LABS: CKMB 9.1 ng/mL (<6.73)
[2019-03-06 18:35] LABS: THYROID STIMULATING HORMONE 3.84 uIU/mL (0.270-4.20)
[2019-03-06] MEDS ORDERED: ASPIRIN 325 MG TABLET PO ONE (19:20)
[2019-03-06] MEDS ORDERED: ACETAMINOPHEN 325 MG TAB PO PRN (20:14)
[2019-03-06] MEDS: CARBIDOPA/LEVODOPA 25MG/100MG TABLET PO SCH (21:42)
[2019-03-06] MEDS: MEMANTINE HCL 10 MG TABLET PO SCH (21:42)
[2019-03-06] MEDS: MELOXICAM 7.5 MG TABLET PO SCH (21:42)
[2019-03-06] MEDS ORDERED: IPRATROPIUM/ALBUTEROL (0.5MG/3MG) NEB INH PRN (21:50)
[2019-03-06] MEDS ORDERED: IPRATROPIUM/ALBUTEROL (0.5MG/3MG) NEB INH SCH (22:00)
--- NOTE | 2019-03-07 04:56 | RADIOLOGY REPORT ---
EXAM: CHEST, TWO VIEWS HISTORY: HYPONATREMIA. TECHNIQUE: Two views of the chest were obtained. FINDINGS: Two views of the chest demonstrate modest atherosclerotic aortic elongation. The cardiac size is normal. No effusion is seen. There is no evidence of infiltrate. The pulmonary vessels are normal. IMPRESSION: SENESCENT CHEST. NOTE IS MADE OF CHRONIC SUBLUXATION OF THE LEFT HUMERUS. JOB NUMBER: [id number] MTDD
--- NOTE | 2019-03-07 04:58 | RADIOLOGY REPORT ---
EXAM: LEFT SHOULDER HISTORY: PAIN. TECHNIQUE: Three views of the left shoulder were obtained. FINDINGS: There is severe cartilage narrowing with bone on bone articulation, osteophytosis, and intracapsular osteochondrosis. No acute fracture or dislocation is seen. 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 JOB NUMBER: [id number] [facility]
[2019-03-07 06:46] LABS: ABSOLUTE NEUTROPHIL COUNT 3.35; BASO % 0.2 % (0-6); EOS % 2.9 % (0-6); GRAN % 68.9 % (47-80); HEMATOCRIT 39.6 % (42.0-52.0); HEMOGLOBIN 13.6 gm/dl (14.0-18.0); LYMPH % 13.4 % (16-45); MEAN CELL VOLUME 94.1 fl (81-97); MEAN CORPUSCULAR HEMOGLOBIN 32.3 pg (27-33); MEAN CORPUSCULAR HGB CONC 34.3 g/dl (32-36); MEAN PLATELET VOLUME 8.6 fl (7.4-10.4); MONO % 14.6 % (0-9); PLATELET COUNT 194 K/uL (130-400); RED BLOOD COUNT 4.21 M/uL (4.40-5.70); RED CELL DISTRIBUTION WIDTH 13.3 % (11.5-14.5); WHITE BLOOD COUNT W/O DIFF 4.9 K/uL (4.2-12.2)
[2019-03-07] MEDS: PANTOPRAZOLE SODIUM 40 MG TABLET PO SCH (06:58)
[2019-03-07 07:03] LABS: CREATININE 1.3 mg/dL (0.7-1.2)
[2019-03-07] MEDS: ESCITALOPRAM 10 MG TABLET PO SCH (09:43)
[2019-03-07] MEDS: MEMANTINE HCL 10 MG TABLET PO SCH ×2 (09:43→21:27)
[2019-03-07] MEDS: CARBIDOPA/LEVODOPA 25MG/100MG TABLET PO SCH ×4 (09:43→21:27)
[2019-03-07] MEDS: POLYETHYLENE GLY 17 GM PACKET PO SCH (09:44)
[2019-03-07] MEDS: MELOXICAM 7.5 MG TABLET PO SCH ×2 (09:44→21:26)
[2019-03-07] MEDS: DONEPEZIL HCL 5 MG TABLET PO SCH (09:44)
[2019-03-07] MEDS: ASPIRIN 325 MG TAB ENTERIC-COATED PO SCH (09:44)
[2019-03-07] MEDS ORDERED: BREO (FLUTICASONE/VILANTEROL) 200MCG/25MCG INHALER INH SCH (10:00)
[2019-03-07] MEDS: IPRATROPIUM/ALBUTEROL (0.5MG/3MG) NEB INH SCH ×2 (10:37→21:10)
[2019-03-07] MEDS: BUDESONIDE 0.5 MG/2 ML INH SCH ×2 (10:37→21:10)
--- NOTE | 2019-03-07 13:18 | History & Physical ---
History of Present Illness - Date of Service Date of Service for History & Physical: 03/07/19 - History of Present Illness Admitting Diagnosis: 1. Acute Hyponatremia History of Present Illness: 83 y/o male presented to ED for acute change in behavior, combativeness and paranoia. He does have hx of dementia and parkinson's. Recently moved to [facility] about 4 days prior. ED history obtained by and [facility] staff. [facility] tested urine prior to him coming to ED and reported urinalysis was negative for UTI. Patient was also seen in ED 03/03/19 for fall- head and cervical spine CT negative for acute process. PMX includes severe dementia, Parkinson's disease, former smoker, COPD, pneumonia, HTN, GERD, rectal bleeding, polyps, BPH, and chronic back pain (spinal cord stimulator in place, replaced 12/30/[address] Burrows due to malfunction). Upon arrival to ED VSS. alert and cooperative. Na 121, CK 364, troponin #1 0.028, #2 0.035, CXR chronic subluxation of left humerus, otherwise negative for acute process, left shoulder x-ray negative for fracture. EKG with no acute changes. Admitted to floor in stable condition for observation, PT/OT eval, sodium replacement. 03/07/19- appear comfortable, alert and oriented to self only. Has frequently went to [facility] to move bowels. Has been cooperative with care so far. Spoke with Tracie who wishes to take him home with her at the time of discharge. Feels [facility] may be too stimulating for him and did not offer enough supervision. Has only been there 4 days and was admitted for the family's concern of caregiver burnout. PCP: Dr Marcano Travel Screening - Travel/Exposure Within Last 30 Days Have you traveled within the last 30 days?: No - Travel/Exposure Within Last Year Have you traveled outside the [place] in the last year?: No - Additonal Travel Details Have you been exposed to anyone with a communicable illness?: No Review of Systems Constitutional: Denies: Chills, Fever, Malaise Eyes: Denies: Eye discharge ENT: Denies: Congestion Respiratory: Denies: Cough, Dyspnea Cardiovascular: Denies: Chest pain Endocrine: Reports: Fatigue Gastrointestinal: Denies: Nausea Genitourinary: Denies: Dysuria Musculoskeletal: Denies: Arthralgia Skin: Denies: Bruising Neurological: Reports: Abnormal gait, Confusion Psychiatric: Reports: Other (Baseline dementia) Past Medical History - SOCIAL HISTORY Smoking Status: Former smoker Alcohol Use: None Drug Use: None - RESPIRATORY Hx Respiratory Disorders: Yes Hx COPD: Yes Hx Pneumonia: Yes - CARDIOVASCULAR Hx Cardio Disorders: Yes Hx Hypertension: Yes (good control w meds) - NEURO Hx Neuro Disorders: Yes Hx Dementia: Yes Hx Parkinson's Disease: Yes - GI Hx GI Disorders: Yes Hx Reflux: Yes Hx Rectal Bleeding: Yes Hx of Polyps: Yes - Hx Genitourinary Disorders: Yes Hx Prostate Problems: Yes - ENDOCRINE Hx Endocrine Disorders: No - MUSCULOSKELETAL Hx Musculoskeletal Disorders: Yes Hx Back Injury: Yes - PSYCH Hx Psych Problems: Yes Hx Depression: Yes - HEMATOLOGY/ONCOLOGY Hx Hematology/Oncology Disorders: Yes Hx Bruising: Yes Hx Cancer: Yes (skin cancer removed) Family Medical History Any Significant Family History?: Yes Hx Cancer: Brother/Sister Hx Diabetes: Brother/Sister Hx Heart Disease: Father, Mother, Brother/Sister Hx HTN: Father Hx Stroke: Father H&P Meds/Allergies - Allergies Allergies: Allergies Allergy/AdvReac Type Severity Reaction Status Date / Time No Known Drug Allergies Allergy Unknown Verified 03/06/19 17:51 [NO KNOWN DRUG ALLERGIES] - Home Medications Home Medications Medication Instructions Recorded Confirmed Last Taken Bismuth Subsalicylate 262 mg PO BID 03/06/19 03/06/19 03/06/19 [Pepto-Bismol] Donepezil HCl 10 mg PO DAILY 03/06/19 03/06/19 Unknown Escitalopram Oxalate [Lexapro] 10 mg PO DAILY 03/06/19 03/06/19 Unknown Vitamin B Complex/Folic Acid 0.4 mg PO DAILY 03/06/19 03/06/19 03/06/19 [B-Complex Tablet] Previous Rx's Medication Instructions Recorded Polyethylene Glycol 3350 [Miralax] 1 packet PO DAILY #30 packet 11/07/15 - Active Medications Active Medications: Current Medications Acetaminophen (Tylenol 325mg) 650 mg PO Q6H PRN PRN Reason: PAIN - MILD(1-4)/FEVER Albuterol/Ipratropium (Duoneb) 3 ml INH BID [facility] Last Admin: 03/07/19 10:37 Dose: 3 ml Documented by: Aspirin (Ecotrin (Ec)) 325 mg PO DAILY [facility] Last Admin: 03/07/19 09:44 Dose: 325 mg Documented by: Budesonide (Pulmicort) 0.5 mg INH BID [facility] Last Admin: 03/07/19 10:37 Dose: 0.5 mg Documented by: Carbidopa/Levodopa (Sinemet) 1 each PO QID [facility] Last Admin: 03/07/19 09:43 Dose: 1 each Documented by: Donepezil HCl (Aricept) 10 mg PO DAILY [facility] Last Admin: 03/07/19 09:44 Dose: 10 mg Documented by: Escitalopram Oxalate (Lexapro) 10 mg PO DAILY [facility] Last Admin: 03/07/19 09:43 Dose: 10 mg Documented by: Meloxicam (Mobic) 7.5 mg PO BID [facility] Last Admin: 03/07/19 09:44 Dose: 7.5 mg Documented by: Memantine (Namenda) 10 mg PO BID [facility] Last Admin: 03/07/19 09:43 Dose: 10 mg Documented by: Non-Formulary Medication (Bisoprol/Hydrochlorothiazide [Ziac 2.5-6.25 Mg Tablet]) 1 each PO DAILY [facility] Non-Formulary Medication (Carbidopa/Levodopa [Sinemet Cr 50-200 Tablet]) 1 each PO QHS [facility] Non-Formulary Medication (Mirabegron [Myrbetriq]) 50 mg PO QHS [facility] Pantoprazole Sodium (Protonix) 40 mg PO DAILYAC [facility] Last Admin: 03/07/19 06:58 Dose: 40 mg Documented by: Polyethylene Glycol (Miralax) 17 gm PO DAILY [facility] Last Admin: 03/07/19 09:44 Dose: 17 gm Documented by: Physical Exam - Vital Signs Vital Signs: Vital Signs - Last 24 Hrs Temp Pulse Pulse Resp BP BP Pulse Ox 03/07/19 10:37 78 16 99 03/07/19 06:14 97.9 F 64 18 188/90 99 03/06/19 20:14 97.9 F 67 20 180/91 100 03/06/19 18:43 72 20 162/92 98 03/06/19 17:46 98.0 F 78 20 195/95 98 - General General Appearance: Alert, Cooperative, No acute distress Limitations: Altered mental status - Head Head exam: Atraumatic, Normocephalic, Normal inspection - Eye Eye exam: Normal appearance, PERRL - ENT ENT exam: Normal exam Throat exam: Normal inspection. negative: Tonsillar erythema, Tonsillar exudate - Neck Neck exam: Normal inspection, Full ROM. negative: Tenderness - Respiratory Respiratory exam: Normal lung sounds bilaterally. negative: Respiratory distress - Cardiovascular Cardiovascular Exam: Regular rate, Normal rhythm, Normal heart sounds. negative: Diastolic murmur - GI/Abdominal GI/Abdominal exam: Soft, Normal bowel sounds. negative: Rebound, Rigid, Tenderness - Rectal Rectal exam: Deferred - exam: Deferred - Extremities Extremities exam: Normal inspection, Full ROM, Normal capillary refill. negative: Tenderness - Back Back exam: Reports: Normal inspection - Neurological Neurological exam: Abnormal gait (chronic. Uses walker.), Alert. negative: Altered, Motor sensory deficit, Normal gait, Oriented X3 (The patient is oriented to name and place but not age or date. His states this is normal for him.) - Psychiatric Psychiatric exam: Flat affect. negative: Anxious Results - Labs Result Diagrams: 03/07/19 06:26 03/07/19 06:26 Labs Last 24 Hours: Laboratory Results - last 24 hr 03/06/19 03/06/19 03/06/19 18:00 18:00 18:00 WBC 5.8 RBC 4.02 L Hgb 12.9 L Hct 38.0 L MCV 94.5 MCH 32.0 MCHC 33.9 RDW 13.3 Plt Count 178 MPV 8.3 Gran % 74.8 Lymphocytes % 8.8 L Monocytes % 13.7 H Eosinophils % 2.4 Basophils % 0.3 Absolute Neutrophils 4.35 Sodium 121 L Potassium 4.2 Chloride 80 L Carbon Dioxide 24.0 Anion Gap 17.0 H BUN 26 H Creatinine 1.2 Estimated GFR > 60 Random Glucose 115 H Calcium 8.7 L Total Bilirubin 0.40 AST 39 ALT < 5 Alkaline Phosphatase 86 Creatine Kinase 364 H Cancelled CK-MB (CK-2) 9.1 H CK-MB (CK-2) Rel Index 2.50 Troponin T 0.028 H Total Protein 6.3 L Albumin 4.1 Globulin 2.2 Albumin/Globulin Ratio 1.9 H TSH 3.84 03/07/19 03/07/19 03/07/19 00:50 06:26 06:26 WBC 4.9 RBC 4.21 L Hgb 13.6 L Hct 39.6 L MCV 94.1 MCH 32.3 MCHC 34.3 RDW 13.3 Plt Count 194 MPV 8.6 Gran % 68.9 Lymphocytes % 13.4 L Monocytes % 14.6 H Eosinophils % 2.9 Basophils % 0.2 Absolute Neutrophils 3.35 Sodium 124 L Potassium 4.3 Chloride 87 L Carbon Dioxide 27.0 Anion Gap 10.0 BUN 22 Creatinine 1.3 H Estimated GFR 56 Random Glucose 101 Calcium 9.2 Total Bilirubin AST ALT Alkaline Phosphatase Creatine Kinase CK-MB (CK-2) CK-MB (CK-2) Rel Index Troponin T 0.035 H Total Protein Albumin Globulin Albumin/Globulin Ratio TSH 03/07/19 06:33 WBC RBC Hgb Hct MCV MCH MCHC RDW Plt Count MPV Gran % Lymphocytes % Monocytes % Eosinophils % Basophils % Absolute Neutrophils Sodium Potassium Chloride Carbon Dioxide Anion Gap BUN Creatinine Estimated GFR Random Glucose Calcium Total Bilirubin AST ALT Alkaline Phosphatase Creatine Kinase CK-MB (CK-2) CK-MB (CK-2) Rel Index Troponin T 0.036 H Total Protein Albumin Globulin Albumin/Globulin Ratio TSH - Imaging and Cardiology Chest x-ray Status: Report reviewed (No acute process) VTE H&P Assessment - Risk for VTE Risk for VTE: Yes Risk Level: Low Risk Assessment Date: 03/07/19 Risk Assessment Time: 13:39 VTE Orders Placed or Will Be Placed: Yes Plan - Detailed Diagnosis and Plan (1) Hyponatremia Current Visit: Yes Status: Acute Base Code: E87.1 - HYPO-OSMOLALITY AND HYPONATREMIA Comment: 03/07/19 - Na 121--> 124 - Troponin 0.028-->0.035-->0.036, indeterminant, no acute EKG changes - Gental sodium replacement with 0.9%NS @ 80ml/hr x 1 liter - 2L FR - Is on medications that can cause hyponatremia (HCTZ, Aricept, Lexapro). Per chart review Na since 08/09/16 has been 130-134 with a couple outlying normal values - labs in the am (2) Frequent falls Current Visit: Yes Status: Acute Base Code: R29.6 - REPEATED FALLS Comment: 03/07/19 - Likely multifactoral- PD, dementia, hyponatremia - CK 364, CK-MB 9.1 upon arrival, troponin X 3 indeterminant, EKG with no acute changes - U/A with C&S if indicated - PT/OT eval - previous fall 03/03/19 with ED work up- negative for intracranial bleed or fractures - Bed alarm - Ambulate with walker (3) Dementia Current Visit: Yes Status: Acute Base Code: F03.90 - UNSPECIFIED DEMENTIA WITHOUT BEHAVIORAL DISTURBANCE Comment: 03/07/19 - Continue Aricept 10mg QD, Namenda 5mg QD (4) Full code status Current Visit: Yes Status: Acute Base Code: Z78.9 - OTHER SPECIFIED HEALTH STATUS (5) DVT prophylaxis Current Visit: Yes Status: Acute Base Code: Z29.9 - ENCOUNTER FOR PROPHYLACTIC MEASURES, UNSPECIFIED Comment: 03/07/19 - Nursing to assist with ambulation with walker - Hold anticoagulation due to high fall risk
[2019-03-07] MEDS ORDERED: 0.9 % SODIUM CHLORIDE 1000ML 1,000 ML IV PRN ×2 (13:22→13:23)
[2019-03-07 14:35] LABS: URINE APPEARANCE CLEAR; URINE BILIRUBIN NEGATIVE (NEGATIVE); URINE BLOOD NEGATIVE (NEGATIVE); URINE COLOR YELLOW; URINE GLUCOSE (UA) NEGATIVE (NEGATIVE); URINE KETONE NEGATIVE (NEGATIVE); URINE LEUKOCYTE ESTERASE NEGATIVE (NEGATIVE); URINE NITRITE NEGATIVE (NEGATIVE); URINE PROTEIN NEGATIVE (NEGATIVE)
[2019-03-07] MEDS: Non-Formulary MISC (Carbidopa/Levodopa [Sinemet Cr 50-200 Tablet] 1 EACH) PO SCH (21:27)
[2019-03-07] MEDS: Non-Formulary MISC (Mirabegron [Myrbetriq] 50 MG) PO SCH (21:28)
[2019-03-08 06:47] LABS: ABSOLUTE NEUTROPHIL COUNT 2.98; BASO % 0.5 % (0-6); EOS % 3.6 % (0-6); GRAN % 71.4 % (47-80); HEMATOCRIT 35.4 % (42.0-52.0); HEMOGLOBIN 11.9 gm/dl (14.0-18.0); LYMPH % 11.3 % (16-45); MEAN CELL VOLUME 94.9 fl (81-97); MEAN CORPUSCULAR HEMOGLOBIN 31.9 pg (27-33); MEAN CORPUSCULAR HGB CONC 33.6 g/dl (32-36); MEAN PLATELET VOLUME 8.1 fl (7.4-10.4); MONO % 13.2 % (0-9); PLATELET COUNT 168 K/uL (130-400); RED BLOOD COUNT 3.73 M/uL (4.40-5.70); RED CELL DISTRIBUTION WIDTH 13.3 % (11.5-14.5); WHITE BLOOD COUNT W/O DIFF 4.2 K/uL (4.2-12.2)
[2019-03-08 07:30] LABS: ALB/GLOB RATIO 2.1 (1.1-1.8); ALBUMIN 3.7 g/dL (4.0-5.0); ALKALINE PHOSPHATASE 75 U/L (40-129); ALT/SGPT < 5 U/L (<41); AST/SGOT 31 U/L (10.0-50.0); BLOOD UREA NITROGEN 21 mg/dL (8-23); CREATININE 1.2 mg/dL (0.7-1.2); EST GLOMERULAR FILTRATION RATE > 60 mL/min; GLUCOSE,RANDOM 99 mg/dL (74-109); TOTAL PROTEIN 5.5 g/dL (6.6-8.7)
[2019-03-08] MEDS: PANTOPRAZOLE SODIUM 40 MG TABLET PO SCH (07:47)
--- NOTE | 2019-03-08 09:40 | Physician Progress Note ---
Subjective - Date Date of Physician Progress Note: 03/08/19 - Subjective Subjective Comment: Nursing reports he has been up to the bathroom frequently over night, did not move bowels or urinate at those times. Per report he is "obsessed" with the bathroom and typically goes to the bathroom frequently to relieve self but does not have any results. No combative behaviors over night, poor po intake. Awaiting PT/OT eval Objective - Vital Signs Vital Signs: Vital Signs - Last 24 Hrs Temp Pulse Pulse Resp BP Pulse Ox 03/08/19 06:00 97.7 F 74 18 155/79 96 03/07/19 21:10 88 16 95 03/07/19 21:06 98.6 F 76 18 146/59 98 03/07/19 18:00 97.9 F 76 18 139/82 98 03/07/19 14:00 97.9 F 75 18 146/86 93 L 03/07/19 10:37 78 16 99 - General General Appearance: Alert, Cooperative, No acute distress Limitations: Altered mental status - Head Head exam: Atraumatic, Normocephalic, Normal inspection - Eye Eye exam: Normal appearance, PERRL - ENT ENT exam: Normal exam Throat exam: Normal inspection. negative: Tonsillar erythema, Tonsillar exudate - Neck Neck exam: Normal inspection, Full ROM. negative: Tenderness - Respiratory Respiratory exam: Normal lung sounds bilaterally. negative: Respiratory distress - Cardiovascular Cardiovascular Exam: Regular rate, Normal rhythm, Normal heart sounds. negativ e: Diastolic murmur - GI/Abdominal GI/Abdominal exam: Soft, Normal bowel sounds. negative: Rebound, Rigid, Tenderness - Rectal Rectal exam: Deferred - exam: Deferred - Extremities Extremities exam: Normal inspection, Full ROM, Normal capillary refill. negative: Tenderness - Back Back exam: Reports: Normal inspection - Neurological Neurological exam: Abnormal gait (chronic. Uses walker.), Alert. negative: Altered, Motor sensory deficit, Normal gait, Oriented X3 (The patient is oriented to name and place but not age or date. His states this is normal for him.) - Psychiatric Psychiatric exam: Flat affect. negative: Anxious Assessment and Plan - Assessment and Plan (1) Hyponatremia Current Visit: Yes Status: Acute Base Code: E87.1 - HYPO-OSMOLALITY AND HYPONATREMIA Comment: 03/08/19 - Na 121--> 124--> - Troponin 0.028-->0.035-->0.036, indeterminant, no acute EKG changes - Gental sodium replacement with 0.9%NS @ 80ml/hr x 1 liter - 2L FR - Is on medications that can cause hyponatremia (HCTZ, Aricept, Lexapro). Per chart review Na since 08/09/16 has been 130-134 with a couple outlying normal values - Will DC HCTZ and monitor - 8oz broth BID - labs in the am (2) Frequent falls Current Visit: Yes Status: Acute Base Code: R29.6 - REPEATED FALLS Comment: 03/08/19 - Likely multifactoral- PD, dementia, hyponatremia - CK 364, CK-MB 9.1 upon arrival, troponin X 3 indeterminant, EKG with no acute changes - U/A negative - PT/OT eval - previous fall 03/03/19 with ED work up- negative for intracranial bleed or fractures - Bed alarm - Ambulate with walker (3) Dementia Current Visit: Yes Status: Acute Base Code: F03.90 - UNSPECIFIED DEMENTIA WITHOUT BEHAVIORAL DISTURBANCE Comment: 03/08/19 - Continue Aricept 10mg QD, Namenda 5mg QD (4) Full code status Current Visit: Yes Status: Acute Base Code: Z78.9 - OTHER SPECIFIED HEALTH STATUS Comment: 03/08/19 (5) DVT prophylaxis Current Visit: Yes Status: Acute Base Code: Z29.9 - ENCOUNTER FOR PROPHYLACTIC MEASURES, UNSPECIFIED Comment: 03/08/19 - Nursing to assist with ambulation with walker - Hold anticoagulation due to high fall risk Results - Labs Result Diagrams: 03/08/19 06:40 03/08/19 06:40 Labs Last 24 Hours: Laboratory Results - last 24 hr 03/07/19 03/08/19 03/08/19 14:33 06:40 06:40 WBC 4.2 RBC 3.73 L Hgb 11.9 L Hct 35.4 L MCV 94.9 MCH 31.9 MCHC 33.6 RDW 13.3 Plt Count 168 MPV 8.1 Gran % 71.4 Lymphocytes % 11.3 L Monocytes % 13.2 H Eosinophils % 3.6 Basophils % 0.5 Absolute Neutrophils 2.98 Sodium 124 L Potassium 4.5 Chloride 89 L Carbon Dioxide 27.0 Anion Gap 8.0 BUN 21 Creatinine 1.2 Estimated GFR > 60 Random Glucose 99 Calcium 8.6 L Total Bilirubin 0.70 AST 31 ALT < 5 Alkaline Phosphatase 75 Total Protein 5.5 L Albumin 3.7 L Globulin 1.8 Albumin/Globulin Ratio 2.1 H Urine Color Yellow Urine Appearance Clear Urine pH 6.5 Ur Specific [place] 1.010 Urine Protein Negative Urine Glucose (UA) Negative Urine Ketones Negative Urine Blood Negative Urine Nitrite Negative Urine Bilirubin Negative Urine Urobilinogen 1.0 Ur Leukocyte Esterase Negative DVT/PE Assessment - Risk for VTE Risk for VTE: No Risk Level: Low Risk Assessment Date: 03/07/19 Risk Assessment Time: 13:39 VTE Orders Placed or Will Be Placed: Yes - Active Medicaitons Current Medications: Current Medications Acetaminophen (Tylenol 325mg) 650 mg PO Q6H PRN PRN Reason: PAIN - MILD(1-4)/FEVER Albuterol/Ipratropium (Duoneb) 3 ml INH BID [facility] Last Admin: 03/07/19 21:10 Dose: 3 ml Documented by: Aspirin (Ecotrin (Ec)) 325 mg PO DAILY [facility] Last Admin: 03/07/19 09:44 Dose: 325 mg Documented by: Budesonide (Pulmicort) 0.5 mg INH BID [facility] Last Admin: 03/07/19 21:10 Dose: 0.5 mg Documented by: Carbidopa/Levodopa (Sinemet) 1 each PO QID [facility] Last Admin: 03/07/19 21:27 Dose: 1 each Documented by: Donepezil HCl (Aricept) 10 mg PO DAILY [facility] Last Admin: 03/07/19 09:44 Dose: 10 mg Documented by: Escitalopram Oxalate (Lexapro) 10 mg PO DAILY [facility] Last Admin: 03/07/19 09:43 Dose: 10 mg Documented by: Sodium Chloride () 1,000 mls @ 80 mls/hr IV .[id number] PRN PRN Reason: LARGE VOLUME IV Last Admin: 03/07/19 14:38 Dose: 80 mls/hr Documented by: Meloxicam (Mobic) 7.5 mg PO BID [facility] Last Admin: 03/07/19 21:26 Dose: 7.5 mg Documented by: Memantine (Namenda) 10 mg PO BID [facility] Last Admin: 03/07/19 21:27 Dose: 10 mg Documented by: Non-Formulary Medication (Bisoprol/Hydrochlorothiazide [Ziac 2.5-6.25 Mg Tablet]) 1 each PO DAILY [facility] Non-Formulary Medication (Carbidopa/Levodopa [Sinemet Cr 50-200 Tablet]) 1 each PO QHS [facility] Last Admin: 03/07/19 21:27 Dose: Not Given Documented by: Non-Formulary Medication (Mirabegron [Myrbetriq]) 50 mg PO QHS [facility] Last Admin: 03/07/19 21:28 Dose: Not Given Documented by: Pantoprazole [facility] ([facility]ix) [facility] Last Admin: 03/08/19 07:47 Dose: 40 mg Documented by: Polyethylene Glycol (Miralax) 17 gm PO DAILY [facility] Last Admin: 03/07/19 09:44 Dose: 17 gm Documented by: JALEN Plan - Labs Result Diagrams: 03/08/19 06:40 03/08/19 06:40
[2019-03-08] MEDS: IPRATROPIUM/ALBUTEROL (0.5MG/3MG) NEB INH SCH ×2 (09:55→21:56)
[2019-03-08] MEDS: BUDESONIDE 0.5 MG/2 ML INH SCH ×2 (09:55→21:56)
[2019-03-08] MEDS ORDERED: BISOPROL PO SCH (10:00)
[2019-03-08] MEDS ORDERED: HYDROCHLOROTHIAZIDE PO SCH (10:00)
[2019-03-08] MEDS: MELOXICAM 7.5 MG TABLET PO SCH ×2 (11:07→22:17)
[2019-03-08] MEDS: ESCITALOPRAM 10 MG TABLET PO SCH (11:07)
[2019-03-08] MEDS: DONEPEZIL HCL 5 MG TABLET PO SCH (11:07)
[2019-03-08] MEDS: MEMANTINE HCL 10 MG TABLET PO SCH ×2 (11:07→22:17)
[2019-03-08] MEDS: ASPIRIN 325 MG TAB ENTERIC-COATED PO SCH (11:07)
[2019-03-08] MEDS: POLYETHYLENE GLY 17 GM PACKET PO SCH (11:08)
[2019-03-08] MEDS: CARBIDOPA/LEVODOPA 25MG/100MG TABLET PO SCH ×3 (11:22→17:53)
--- NOTE | 2019-03-08 14:07 | Rehab Evaluation ---
Patient Information - Patient Information Diagnosis: Hyponatremia Ordered Treatment: PT Evaluate and Treat Status: Initial Evaluation Past Medical/Surgical Hx: PAST MEDICAL/SURGICAL HISTORY Past Surgical History cataract left eye; (peripheral neuropathy)stimulator trial & implant ([employer]); polyp removal--EGD; metal plate in r leg due to fracture; Stimulator to L back for pain 10/2015 rotator cuff repair both right and left; facet injections; colonoscopy. SCS trial 08-15-15; took out trial SCS 08-26-15. PMH - Respiratory Hx Respiratory Disorders Yes Hx Asthma Yes: childhood Hx Chronic Obstructive Yes Pulmonary Disease (COPD) Hx Pneumonia Yes Hx Sleep Apnea tested for PMH - Cardiovascular Hx Cardiovascular Disorders Yes Hx Edema Yes: slight in ankles Hx Hypertension Yes: good control w meds Comment: "has slower heartrate" "in the 60s" PMH - Neuro Hx Neurological Disorders Yes Hx Dementia Yes Hx Dizziness Yes: when gets up too quickly Hx Neuropathy Yes: legs Hx Parkinson's Disease Yes Hx Weakness Yes: Left hand Hx of Neuromuscular Disease Yes: peripheral neuropathy Comment: some memory loss but no diagnosis PMH - GI Hx Gastrointestinal Disorders Yes Hx Diverticulitis Yes: unsure Hx Gastroesophageal Reflux Yes Hx Irritable Bowel Yes: unsure Hx Rectal Bleeding Yes PMH - Hx Genitourinary Disorders Yes Hx Bladder Problem Yes Hx Prostate Problems Yes 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 Hx Urinary Tract Infection Yes Comment: states he has a "drip" PMH - Endocrine Hx Endocrine Disorders No PMH - Musculoskeletal Hx Musculoskeletal Disorders Yes Hx Arthritis Yes Hx Back Injury Yes Hx Osteoporosis Yes Comment: has bilat "frozen shoulders" PMH - Psych Hx Psychiatric Problems Yes Hx Anxiety Yes Hx Depression Yes PMH - Hematology/Oncology Hx Hematology/Oncology Yes Disorders Hx Bruising Yes Hx Cancer Yes: skin cancer removed Premorbid Status: Detail (Per patient's , prior to admission to hospital and [facility], patient was ambulatory with front wheeled walker, was showering with set up and some assist to wash back and dressing with assistance at times.) Social History: Detail (The patient was a resident at [facility] for a few days but will be returning home. The patient lives with spouse in a 2 story house with bedroom and bathroom on the first floor. Three to five steps are present at the enterance with two handrails (one within reach). The bathroom is equipped with: a walk in shower, shower chair , elevated toilet seat and 3 grab bars by both the toilet and shower. The patient has a front wheeled walker.) Precautions: [place], Fall - Time With Patient Total Time Spent With Patient (Min): 30 Treatment Procedures: Detail (Initial Evaluation, low complexity) Subjective Information - Subjective Information Per Patient (The patient complained of lower back pain which he rated as 10 at the highest.) Objective Data - Mental Status Patient Orientation: Person (The patient knew his birthdate, not his age, month or year. Patient did not know he was in the hospital.) - ROM Not within normal limits (The patient exhibited bilateral dorsiflexion to neutral. All other LE AROM was in functional limits.) - Strength/Tone Not within normal limits (The patient exhibited bilateral LE extensor tone , Level 3 on the Sheri Scale)considerable increase in tone with ; passive movement difficulty). R ankle clonus was present- 2 beats. LE strength testing was influenced by LE extensor tone, however was fucntional, generally 4/5. The patient also exhibited increased tone in trunk (level 3 on Sheri scale).Refer to OT note for UE tone and strength.) - Transfers Independent (The patient was independent/supervision with sit to stand transfer and stand to sit transfer with verbal and tactile cues to reach for the surface.) - Balance Balance Sitting: Good Balance Standing: Fair (The patient required support of walker.) - Gait Detail (The patient ambulated with front wheeled walker a distance of 75 feet x 1 with CG for safety. The patient's gait pattern was charecterized by decreased trunk rotation and forward lean, increased gait speed at times with walker placed foward and normal stride length shuffle steps.) Therapy Assessment - Therapy Assessment Detail (The patient exhibited increased LE and trunk tone, UE tremors. The patient required verbal cueing for safety with transfers and CG with ambulation. The patient had difficulty initiating movements at times and required both tactile and verbal cues. Feel the patient would benefit from ongoing PT to improve functional mobility and neuro reeducation techniques decrease LE muscle tone to improve gait pattern. Patient would benefit from Home PT once discharged from [facility].) Problem List - Problem List Physical Therapy Problem List: Detail (1) Increased LE muscle tone 2) Assistance with transfers and ambulation 3) Decreased standing balance 4)Cognitive status) Goals - Goals Physical Therapy Goals: 1) The patient will ambulate community distances with assistive device with supervision for safety. 2) Patient will require supervision only with transfers. 3) Independent/supervison with bed mobility. 4) Assess the patient's balance using an objective balance scale. Prognosis - Prognosis Moderate Plan - Plan Physical Therapy Plan: PT 1 time a day for gait, transfer training, neuroreeducation and balance exercises.
--- NOTE | 2019-03-08 14:56 | Rehab Evaluation ---
Patient Information - Patient Information Diagnosis: Acute Hyponatremia Ordered Treatment: OT Evaluate and Treat Status: Initial Evaluation Surgery: No Past Medical/Surgical Hx: PAST MEDICAL/SURGICAL HISTORY Past Surgical History cataract left eye; (peripheral neuropathy)stimulator trial & implant ([employer]); polyp removal--EGD; metal plate in r leg due to fracture; Stimulator to L back for pain 10/2015 rotator cuff repair both right and left; facet injections; colonoscopy. SCS trial 08-15-15; took out trial SCS 08-26-15. PMH - Respiratory Hx Respiratory Disorders Yes Hx Asthma Yes: childhood Hx Chronic Obstructive Yes Pulmonary Disease (COPD) Hx Pneumonia Yes Hx Sleep Apnea tested for PMH - Cardiovascular Hx Cardiovascular Disorders Yes Hx Edema Yes: slight in ankles Hx Hypertension Yes: good control w meds Comment: "has slower heartrate" "in the 60s" PMH - Neuro Hx Neurological Disorders Yes Hx Dementia Yes Hx Dizziness Yes: when gets up too quickly Hx Neuropathy Yes: legs Hx Parkinson's Disease Yes Hx Weakness Yes: Left hand Hx of Neuromuscular Disease Yes: peripheral neuropathy Comment: some memory loss but no diagnosis PMH - GI Hx Gastrointestinal Disorders Yes Hx Diverticulitis Yes: unsure Hx Gastroesophageal Reflux Yes Hx Irritable Bowel Yes: unsure Hx Rectal Bleeding Yes PMH - Hx Genitourinary Disorders Yes Hx Bladder Problem Yes Hx Prostate Problems Yes 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 Hx Urinary Tract Infection Yes Comment: states he has a "drip" PMH - Endocrine Hx Endocrine Disorders No PMH - Musculoskeletal Hx Musculoskeletal Disorders Yes Hx Arthritis Yes Hx Back Injury Yes Hx Osteoporosis Yes Comment: has bilat "frozen shoulders" PMH - Psych Hx Psychiatric Problems Yes Hx Anxiety Yes Hx Depression Yes PMH - Hematology/Oncology Hx Hematology/Oncology Yes Disorders Hx Bruising Yes Hx Cancer Yes: skin cancer removed Premorbid Status: Detail (Per patient's , prior to admission to hospital and [facility], patient was ambulatory with front wheeled walker, was showering and dressing with set up and some assistance. Spouse is responsible for all home mgmt, meal prep and laundry tasks.) Social History: Detail (The patient was a resident at [facility] for a few days but will be returning home. The patient lives with spouse in a 2 story house with bedroom and bathroom on the first floor. Three to five steps are present at the entrance with two handrails. The bathroom is equipped with: a walk in shower, shower chair , elevated toilet seat and 3 grab bars by both the toilet and shower. The patient has a front wheeled walker.) Precautions: [facility], Fall - Time With Patient Total Time Spent With Patient (Min): 35 Treatment Procedures: Detail (OT eval low complexity) Subjective Information - Subjective Information Per Patient, Other (Spouse) Objective Data - Pain Pain Present: No - Mental Status Patient Orientation: Person (Pt oriented to self, spouse, birthday. He stated age as 81 and he was unsure of location, month or year.) - Visual Perception Appears within normal limits for therapeutic activities (Pt wears glasses) - ROM Not within normal limits (Olaf shoulder flexion limited to approx. 110 degrees, remaining olaf UE AROM WNL) - Strength/Tone Within normal limits (Olaf UE strength 4/5 throughout) - Coordination Deficit (Pt has difficulty with fastening buttons, he has olaf UE tremors noted with activity) - Transfers Needs Assist (Pt required verbal cueing and CG assist for sit to stand and stand to sit.) - Balance Balance Sitting: Good Balance Standing: Fair - Sensation Intact - Gait Detail (Pt ambulated approx. 75 feet with CG assist and 2 wheeled walker.) - ADL's/IADL's Detail (Pt required mod assist to don pants over feet as well as to pull pants over hips and fasten clasp. reports this is typical and she assists him as needed.) Therapy Assessment - Therapy Assessment Detail (Pt presents with decreased Ind with self cares and decreased UE coordination/functional use.) Problem List - Problem List Physical Therapy Problem List: Detail (1) Increased LE muscle tone 2) Assistance with transfers and ambulation 3) Decreased standing balance 4)Cognitive status) Occupational Therapy Problem List: Detail (1. Decreased functional use of UEs. 2. Decreased Ind with self care tasks.) Goals - Goals Physical Therapy Goals: 1) The patient will ambulate community distances with assistive device with supervision for safety. 2) Patient will require supervision only with transfers. 3) Independent/supervison with bed mobility. 4) Assess the patient's balance using an objective balance scale. Occupational Therapy Goals: 1. Pt will demonstrate improved UE coordination to allow Ind with manipulating fasteners on clothing. 2. Pt will be Ind with total body dressing. Prognosis - Prognosis Moderate Plan - Plan Physical Therapy Plan: PT 1 time a day for gait, transfer training, neuroreeducation and balance exercises. Occupational Therapy Plan: OT 2-4 times per week to address goals above. Pt may benefit from home OT evaluation to maximize Ind with self cares as well as for caregiver education.
[2019-03-08] MEDS: METOPROLOL SUCC 25 MG TAB.ER PO SCH (17:10)
[2019-03-08] MEDS: Non-Formulary MISC (Carbidopa/Levodopa [Sinemet Cr 50-200 Tablet] 1 EACH) PO SCH (22:17)
[2019-03-08] MEDS: Non-Formulary MISC (Mirabegron [Myrbetriq] 50 MG) PO SCH (22:17)
[2019-03-09] MEDS: CARBIDOPA/LEVODOPA 25MG/100MG TABLET PO SCH ×3 (06:40→14:22)
[2019-03-09] MEDS: PANTOPRAZOLE SODIUM 40 MG TABLET PO SCH (06:40)
[2019-03-09 06:55] LABS: ABSOLUTE NEUTROPHIL COUNT 3.15; BASO % 0.7 % (0-6); EOS % 4.7 % (0-6); GRAN % 71.2 % (47-80); HEMATOCRIT 36.5 % (42.0-52.0); HEMOGLOBIN 12.5 gm/dl (14.0-18.0); LYMPH % 11.7 % (16-45); MEAN CELL VOLUME 94.6 fl (81-97); MEAN CORPUSCULAR HGB CONC 34.2 g/dl (32-36); MEAN PLATELET VOLUME 8.2 fl (7.4-10.4); MONO % 11.7 % (0-9); PLATELET COUNT 194 K/uL (130-400); RED BLOOD COUNT 3.86 M/uL (4.40-5.70); RED CELL DISTRIBUTION WIDTH 13.1 % (11.5-14.5); WHITE BLOOD COUNT W/O DIFF 4.4 K/uL (4.2-12.2)
[2019-03-09 07:16] LABS: MEAN CORPUSCULAR HEMOGLOBIN 32.3 pg (27-33)
[2019-03-09 07:24] LABS: ALB/GLOB RATIO 1.8 (1.1-1.8); ALKALINE PHOSPHATASE 80 U/L (40-129); ALT/SGPT < 5 U/L (<41); AST/SGOT 33 U/L (10.0-50.0); BLOOD UREA NITROGEN 20 mg/dL (8-23); CREATININE 1.2 mg/dL (0.7-1.2); EST GLOMERULAR FILTRATION RATE > 60 mL/min; GLUCOSE,RANDOM 89 mg/dL (74-109); TOTAL PROTEIN 6.2 g/dL (6.6-8.7)
[2019-03-09] MEDS: DONEPEZIL HCL 5 MG TABLET PO SCH (09:39)
[2019-03-09] MEDS: ESCITALOPRAM 10 MG TABLET PO SCH (09:39)
[2019-03-09] MEDS: MEMANTINE HCL 10 MG TABLET PO SCH (09:39)
[2019-03-09] MEDS: ASPIRIN 325 MG TAB ENTERIC-COATED PO SCH (09:39)
[2019-03-09] MEDS: MELOXICAM 7.5 MG TABLET PO SCH (09:39)
[2019-03-09] MEDS: METOPROLOL SUCC 25 MG TAB.ER PO SCH (09:40)
[2019-03-09] MEDS: POLYETHYLENE GLY 17 GM PACKET PO SCH (09:41)
[2019-03-09] MEDS: IPRATROPIUM/ALBUTEROL (0.5MG/3MG) NEB INH SCH (10:37)
[2019-03-09] MEDS: BUDESONIDE 0.5 MG/2 ML INH SCH (10:37)
--- NOTE | 2019-03-09 11:56 | Physician Progress Note ---
Subjective - Date Date of Physician Progress Note: 03/09/19 - Subjective Subjective Comment: No new nursing concerns, patient continues to be restless while is not at the bedside. No falls, fevers, combative behavior. Cognition has remained his stable baseline since admission. attributes combative behavior at [facility] prior to admission due to the amount of people and activity surrounding him. states their home is very quiet with low stimulus. He did not do well with the activities at [facility] nor the amount of staff help that occurred when he fell. Objective - Vital Signs Vital Signs: Vital Signs - Last 24 Hrs Temp Pulse Pulse Resp BP Pulse Ox 03/09/19 10:48 72 18 99 03/09/19 09:09 95 H 18 154/78 99 03/09/19 07:10 98.4 F 73 16 124/58 98 03/08/19 21:56 84 16 03/08/19 20:00 97 F L 83 20 127/77 97 - General General Appearance: Alert, Cooperative, No acute distress Limitations: Altered mental status - Head Head exam: Atraumatic, Normocephalic, Normal inspection - Eye Eye exam: Normal appearance, PERRL - ENT ENT exam: Normal exam Throat exam: Normal inspection. negative: Tonsillar erythema, Tonsillar exudate - Neck Neck exam: Normal inspection, Full ROM. negative: Tenderness - Respiratory Respiratory exam: Normal lung sounds bilaterally. negative: Respiratory distress - Cardiovascular Cardiovascular Exam: Regular rate, Normal rhythm, Normal heart sounds. negative: Diastolic murmur - GI/Abdominal GI/Abdominal exam: Soft, Normal bowel sounds. negative: Rebound, Rigid, Tenderness - Rectal Rectal exam: Deferred - exam: Deferred - Extremities Extremities exam: Normal inspection, Full ROM, Normal capillary refill. ne gative: Tenderness - Back Back exam: Reports: Normal inspection - Neurological Neurological exam: Abnormal gait (chronic. Uses walker.), Alert. negative: Altered, Motor sensory deficit, Normal gait, Oriented X3 (The patient is oriented to name and place but not age or date. His states this is normal for him.) - Psychiatric Psychiatric exam: Flat affect. negative: Anxious Assessment and Plan - Assessment and Plan (1) Hyponatremia Current Visit: Yes Status: Acute Base Code: E87.1 - HYPO-OSMOLALITY AND HYPONATREMIA Comment: 03/09/19 - Na 121--> 124-->-->123 - Troponin 0.028-->0.035-->0.036, indeterminant, no acute EKG changes - Decrease FR to 1.5L/24hr due to baseline low fluid intake - Is on medications that can cause hyponatremia (HCTZ, Aricept, Lexapro). Per chart review Na since 08/09/16 has been 130-134 with a couple outlying normal values - Will DC HCTZ and monitor - 8oz broth BID - Urine osmo and urine sodium to rule out SIADH prior to discharge. Appears hyponatremia is chronic in additon to sodium lowering medications. Has done well with discontinuing HCTZ. With progressed dementia my need to consider discontinuing Aricept and Namenda. - PT/OT eval complete, is safe for discharge home with home PT/OT (2) Frequent falls Current Visit: Yes Status: Acute Base Code: R29.6 - REPEATED FALLS Comment: 03/09/19 - Likely multifactoral- PD, dementia, hyponatremia - CK 364, CK-MB 9.1 upon arrival, troponin X 3 indeterminant, EKG with no acute changes - U/A negative - PT/OT - previous fall 03/03/19 with ED work up- negative for intracranial bleed or fractures - Bed alarm - Ambulate with walker (3) Dementia Current Visit: Yes Status: Acute Base Code: F03.90 - UNSPECIFIED DEMENTIA WITHOUT BEHAVIORAL DISTURBANCE Comment: 03/09/19 - Continue Aricept 10mg QD, Namenda 5mg QD,may need to consider discontinuing these due to chronic hyponatremia and severe dementia (4) Full code status Current Visit: Yes Status: Acute Base Code: Z78.9 - OTHER SPECIFIED HEALTH STATUS Comment: 03/09/19 (5) DVT prophylaxis Current Visit: Yes Status: Acute Base Code: Z29.9 - ENCOUNTER FOR PROPHYLACTIC MEASURES, UNSPECIFIED Comment: 03/09/19 - Nursing to assist with ambulation with walker - Hold anticoagulation due to high fall risk Results - Labs Result Diagrams: 03/09/19 06:43 03/09/19 06:43 Labs Last 24 Hours: Laboratory Results - last 24 hr 03/09/19 03/09/19 06:43 06:43 WBC 4.4 RBC 3.86 L Hgb 12.5 L Hct 36.5 L MCV 94.6 MCH 32.3 MCHC 34.2 RDW 13.1 Plt Count 194 MPV 8.2 Gran % 71.2 Lymphocytes % 11.7 L Monocytes % 11.7 H Eosinophils % 4.7 Basophils % 0.7 Absolute Neutrophils 3.15 Sodium 123 L Potassium 4.3 Chloride 89 L Carbon Dioxide 25.0 Anion Gap 9.0 BUN 20 Creatinine 1.2 Estimated GFR > 60 Random Glucose 89 Calcium 9.0 Total Bilirubin 0.70 AST 33 ALT < 5 Alkaline Phosphatase 80 Total Protein 6.2 L Albumin 4.0 Globulin 2.2 Albumin/Globulin Ratio 1.8 DVT/PE Assessment - Risk for VTE Risk for VTE: No Risk Level: Low Risk Assessment Date: 03/07/19 Risk Assessment Time: 13:39 VTE Orders Placed or Will Be Placed: Yes - Active Medicaitons Current Medications: Current Medications Acetaminophen (Tylenol 325mg) 650 mg PO Q6H PRN PRN Reason: PAIN - MILD(1-4)/FEVER Albuterol/Ipratropium (Duoneb) 3 ml INH BID [facility] Last Admin: 03/09/19 10:37 Dose: 3 ml Documented by: Aspirin (Ecotrin (Ec)) 325 mg PO DAILY [facility] Last Admin: 03/09/19 09:39 Dose: 325 mg Documented by: Budesonide (Pulmicort) 0.5 mg INH BID [facility] Last Admin: 03/09/19 10:37 Dose: 0.5 mg Documented by: Carbidopa/Levodopa (Sinemet) 1 each PO 0600,1000,1400,1800 [facility] Last Admin: 03/09/19 09:39 Dose: 1 each Documented by: Donepezil HCl (Aricept) 10 mg PO DAILY [facility] Last Admin: 03/09/19 09:39 Dose: 10 mg Documented by: Escitalopram Oxalate (Lexapro) 10 mg PO DAILY [facility] Last Admin: 03/09/19 09:39 Dose: 10 mg Documented by: Sodium Chloride () 1,000 mls @ 80 mls/hr IV .[id number] PRN PRN Reason: LARGE VOLUME IV Last Admin: 03/07/19 14:38 Dose: 80 mls/hr Documented by: Meloxicam (Mobic) 7.5 mg PO BID [facility] Last Admin: 03/09/19 09:39 Dose: 7.5 mg Documented by: Memantine (Namenda) 10 mg PO BID [facility] Last Admin: 03/09/19 09:39 Dose: 10 mg Documented by: Metoprolol Succinate (Toprol Xl) 12.5 mg PO DAILY [facility] Last Admin: 03/09/19 09:40 Dose: 12.5 mg Documented by: Non-Formulary Medication (Carbidopa/Levodopa [Sinemet Cr 50-200 Tablet]) 1 each PO QHS [facility] Last Admin: 03/08/19 22:17 Dose: 1 each Documented by: Non-Formulary Medication (Mirabegron [Myrbetriq]) 50 mg PO QHS [facility] Last Admin: 03/08/19 22:17 Dose: 50 mg Documented by: Pantoprazole Sodium (Protonix) 40 mg PO DAILYAC [facility] Last Admin: 03/09/19 06:40 Dose: 40 mg Documented by: Polyethylene Glycol (Miralax) 17 gm PO DAILY [facility] Last Admin: 03/09/19 09:41 Dose: Not Given Documented by: JALEN Plan - Labs Result Diagrams: 03/09/19 06:43 03/09/19 06:43
--- NOTE | 2019-03-09 16:42 | Discharge Summary ---
Providers Discharge Summary Date: 03/09/19 Date of admission: 03/06/19 19:47 Attending physician: LAURY RUSSELL Primary care physician: TIMOTHY GOLDSTEIN D.O. Physical Exam - Vital Signs Vital Signs: Vital Signs - Last 24 Hrs Temp Pulse Pulse Resp BP Pulse Ox 03/09/19 15:30 97.7 F 70 18 137/77 98 03/09/19 10:48 72 18 99 03/09/19 09:09 95 H 18 154/78 99 03/09/19 07:10 98.4 F 73 16 124/58 98 03/08/19 21:56 84 16 03/08/19 20:00 97 F L 83 20 127/77 97 - General General Appearance: Alert, Cooperative, No acute distress Limitations: Altered mental status - Head Head exam: Atraumatic, Normocephalic, Normal inspection - Eye Eye exam: Normal appearance, PERRL - ENT ENT exam: Normal exam Throat exam: Normal inspection. negative: Tonsillar erythema, Tonsillar exudate - Neck Neck exam: Normal inspection, Full ROM. negative: Tenderness - Respiratory Respiratory exam: Normal lung sounds bilaterally. negative: Respiratory distress - Cardiovascular Cardiovascular Exam: Regular rate, Normal rhythm, Normal heart sounds. negative: Diastolic murmur - GI/Abdominal GI/Abdominal exam: Soft, Normal bowel sounds. negative: Rebound, Rigid, Tenderness - Rectal Rectal exam: Deferred - exam: Deferred - Extremities Extremities exam: Normal inspection, Full ROM, Normal capillary refill. negative: Tenderness - Back Back exam: Reports: Normal inspection - Neurological Neurological exam: Abnormal gait (chronic. Uses walker.), Alert. negative: Altered, Motor sensory deficit, Normal gait, Oriented X3 (The patient is oriented to name and place but not age or date. His states this is normal for him.) - Psychiatric Psychiatric exam: Flat affect. negative: Anxious Hospitalization - Hospitalization Admission Diagnosis: 1. Acute Hyponatremia - Problem List/Discharge Diagnosis (1) Hyponatremia Current Visit: Yes Status: Acute Base Code: E87.1 - HYPO-OSMOLALITY AND HYPONATREMIA Comment: 03/09/19 - Na 121--> 124-->-->123 - Troponin 0.028-->0.035-->0.036, indeterminant, no acute EKG changes - Decrease FR to 1.5L/24hr due to baseline low fluid intake - Is on medications that can cause hyponatremia (HCTZ, Aricept, Lexapro). Per chart review Na since 08/09/16 has been 130-134 with a couple outlying normal values - Will DC HCTZ and monitor - 8oz broth BID - Urine osmo and urine sodium to rule out SIADH prior to discharge. Appears hy ponatremia is chronic in additon to sodium lowering medications. Has done well with discontinuing HCTZ. With progressed dementia my need to consider discontinuing Aricept and Namenda. - PT/OT eval complete, is safe for discharge home with home PT/OT (2) Frequent falls Current Visit: Yes Status: Acute Base Code: R29.6 - REPEATED FALLS Comment: 03/09/19 - Likely multifactoral- PD, dementia, hyponatremia - CK 364, CK-MB 9.1 upon arrival, troponin X 3 indeterminant, EKG with no acute changes - U/A negative - PT/OT - previous fall 03/03/19 with ED work up- negative for intracranial bleed or fractures - Bed alarm - Ambulate with walker (3) Dementia Current Visit: Yes Status: Acute Base Code: F03.90 - UNSPECIFIED DEMENTIA WITHOUT BEHAVIORAL DISTURBANCE Comment: 03/09/19 - Continue Aricept 10mg QD, Namenda 5mg QD,may need to consider discontinuing these due to chronic hyponatremia and severe dementia (4) Full code status Current Visit: Yes Status: Acute Base Code: Z78.9 - OTHER SPECIFIED HEALTH STATUS Comment: 03/09/19 (5) DVT prophylaxis Current Visit: Yes Status: Acute Base Code: Z29.9 - ENCOUNTER FOR PROPHYLACTIC MEASURES, UNSPECIFIED Comment: 03/09/19 - Nursing to assist with ambulation with walker - Hold anticoagulation due to high fall risk - Hospitalization Course Disposition: Home Health Service Hospital Course: 83 y/o male presented to ED for acute change in behavior, combativeness and paranoia. He does have hx of dementia and parkinson's. Recently moved to [facility] about 4 days prior. ED history obtained by and [facility] staff. [facility] tested urine prior to him coming to ED and reported urinalysis was negative for UTI. Patient was also seen in ED 03/03/19 for fall- head and cervical spine CT negative for acute process. PMX includes severe dementia, Parkinson's disease, former smoker, COPD, pneumonia, HTN, GERD, rectal bleeding, polyps, BPH, and chronic back pain (spinal cord stimulator in place, replaced 12/30/[address] Burrows due to malfunction). Upon arrival to ED VSS. alert and cooperative. Na 121, CK 364, troponin #1 0.028, #2 0.035, CXR chronic subluxation of left humerus, otherwise negative for acute process, left shoulder x-ray negative for fracture. EKG with no acute changes. Admitted to floor in stable condition for observation, PT/OT eval, sodium replacement. 03/07/19- appear comfortable, alert and oriented to self only. Has frequently went to [facility] to move bowels. Has been cooperative with care so far. Spoke with Tracie who wishes to take him home with her at the time of discharge. Feels [facility] may be too stimulating for him and did not offer enough supervision. Has only been there 4 days and was admitted for the family's concern of caregiver burnout. 03/09/19- Hospital course unremarkable. He continued to be hyponatremic after NS IV bolus and trial of oral broth BID. Urine osmo and urine sodium collected and sent to lab r/o SIADH. Patient has remained at stable cognition, no combativeness, no falls, gait stable with walker and prompting. Hyponatremia likely chronic and somewhat medication induced. He most likely does not need Aricept and Namenda for dementia as is progressed beyond efficacy. Advise his she needs to consult with Dr Amador regarding medications that can cause hyponatremia and adjust as he sees fit. Salt tabs added daily at discharge for sodium support. He is stable to discharge home with her pending urine results. She has adequate home support to care for him. Sodium to be rechecked Wednesday PCP: Dr Amador Procedures: Imaging and X-Rays 03/06/19 17:54 CHEST 2 VIEWS [RAD] Stat 03/06/19 19:14 SHOULDER, LEFT [RAD] Stat Cardiology Procedures 03/06/19 17:54 EKG NOW 03/06/19 20:14 Drive In Waiter/Waitress .Continuous EKG QDX2@0600 Abnormal Labs: Abnormal Lab Results 03/06/19 03/06/19 03/07/19 Range/Units 18:00 18:00 00:50 RBC 4.02 L (4.40-5.70) M/uL Hgb 12.9 L (14.0-18.0) gm/dl Hct 38.0 L (42.0-52.0) % Lymphocytes % 8.8 L (16-45) % Monocytes % 13.7 H (0-9) % Sodium 121 L (136-145) mmol/L Chloride 80 L (98-107) mmol/L Anion Gap 17.0 H (7-16) BUN 26 H (8-23) mg/dL Creatinine (0.7-1.2) mg/dL Random Glucose 115 H (74-109) mg/dL Calcium 8.7 L (8.8-10.2) mg/dL Creatine Kinase 364 H (39-308) U/L CK-MB (CK-2) 9.1 H (<6.73) ng/mL Troponin T 0.028 H 0.035 H (0-0.010) ng/mL Total Protein 6.3 L (6.6-8.7) g/dL Albumin (4.0-5.0) g/dL Albumin/Globulin Ratio 1.9 H (1.1-1.8) 03/07/19 03/07/19 03/07/19 Range/Units 06:26 06:26 06:33 RBC 4.21 L (4.40-5.70) M/uL Hgb 13.6 L (14.0-18.0) gm/dl Hct 39.6 L (42.0-52.0) % Lymphocytes % 13.4 L (16-45) % Monocytes % 14.6 H (0-9) % Sodium 124 L (136-145) mmol/L Chloride 87 L (98-107) mmol/L Anion Gap (7-16) BUN (8-23) mg/dL Creatinine 1.3 H (0.7-1.2) mg/dL Random Glucose (74-109) mg/dL Calcium (8.8-10.2) mg/dL Creatine Kinase (39-308) U/L CK-MB (CK-2) (<6.73) ng/mL Troponin T 0.036 H (0-0.010) ng/mL Total Protein (6.6-8.7) g/dL Albumin (4.0-5.0) g/dL Albumin/Globulin Ratio (1.1-1.8) 03/08/19 03/08/19 03/09/19 Range/Units 06:40 06:40 06:43 RBC 3.73 L 3.86 L (4.40-5.70) M/uL Hgb 11.9 L 12.5 L (14.0-18.0) gm/dl Hct 35.4 L 36.5 L (42.0-52.0) % Lymphocytes % 11.3 L 11.7 L (16-45) % Monocytes % 13.2 H 11.7 H (0-9) % Sodium 124 L (136-145) mmol/L Chloride 89 L (98-107) mmol/L Anion Gap (7-16) BUN (8-23) mg/dL Creatinine (0.7-1.2) mg/dL Random Glucose (74-109) mg/dL Calcium 8.6 L (8.8-10.2) mg/dL Creatine Kinase (39-308) U/L CK-MB (CK-2) (<6.73) ng/mL Troponin T (0-0.010) ng/mL Total Protein 5.5 L (6.6-8.7) g/dL Albumin 3.7 L (4.0-5.0) g/dL Albumin/Globulin Ratio 2.1 H (1.1-1.8) 03/09/19 Range/Units 06:43 RBC (4.40-5.70) M/uL Hgb (14.0-18.0) gm/dl Hct (42.0-52.0) % Lymphocytes % (16-45) % Monocytes % (0-9) % Sodium 123 L (136-145) mmol/L Chloride 89 L (98-107) mmol/L Anion Gap (7-16) BUN (8-23) mg/dL Creatinine (0.7-1.2) mg/dL Random Glucose (74-109) mg/dL Calcium (8.8-10.2) mg/dL Creatine Kinase (39-308) U/L CK-MB (CK-2) (<6.73) ng/mL Troponin T (0-0.010) ng/mL Total Protein 6.2 L (6.6-8.7) g/dL Albumin (4.0-5.0) g/dL Albumin/Globulin Ratio (1.1-1.8) Condition at Discharge: (2) Stable Discharge Medications - Discharge Medications Prescriptions: Sodium Bicarbonate 325 mg PO DAILY #30 tablet Home Medications: Ambulatory Orders Budesonide/Formoterol Fumarate [Symbicort 160-4.5 Mcg Inhaler] 10.2 gm IH BID 05/26/14 [Last Taken 03/06/19] Meloxicam [Mobic] 7.5 mg PO BID 05/26/14 [Last Taken 03/06/19] Omeprazole [Prilosec] 40 mg PO DAILY 05/26/14 [Last Taken 03/06/19] Polyethylene Glycol 3350 [Miralax] 1 packet PO DAILY #30 packet 11/07/15 [Last Taken 03/03/19] Aspirin Chewable 81 mg PO DAILY 02/24/16 [Last Taken 03/06/19] Bisoprol/Hydrochlorothiazide [Ziac 2.5-6.25 mg Tablet] 1 each PO DAILY 02/24/16 [Last Taken 03/05/19] Cholecalciferol (Vitamin D3) [Vitamin D3] 2,000 unit PO DAILY 02/24/16 [Last Taken 03/05/19] Melatonin 20 mg PO QHS 02/24/16 [Last Taken 03/05/19] Memantine HCl [Namenda] 10 mg PO BID 12/12/17 [Last Taken 03/06/19] Carbidopa/Levodopa 25Mg/100Mg [Sinemet] 1 each PO QID 04/24/18 [Last Taken 03/06/19] Mirabegron [Myrbetriq] 50 mg PO QHS 08/25/18 [Last Taken 03/05/19] Carbidopa/Levodopa [Sinemet Cr 50-200 Tablet] 1 each PO QHS 03/03/19 [Last Taken 03/05/19] Clobetasol Propionate/Emoll [Clobetasol Emollient 0.05% Crm] 15 gm TP TID 03/03/19 [Last Taken 03/06/19] Guaifenesin [Mucinex] 1,200 mg PO DAILY 03/03/19 [Last Taken 03/06/19] Ipratropium/Albuterol [Duoneb] 3 ml IH BID 03/03/19 [Last Taken 03/03/19] Bismuth Subsalicylate [Pepto-Bismol] 262 mg PO BID 03/06/19 [Last Taken 03/06/19] Donepezil HCl 10 mg PO DAILY 03/06/19 [Last Taken Unknown] Escitalopram Oxalate [Lexapro] 10 mg PO DAILY 03/06/19 [Last Taken Unknown] Vitamin B Complex/Folic Acid [B-Complex Tablet] 0.4 mg PO DAILY 03/06/19 [Last Taken 03/06/19] Acetaminophen [Tylenol 325Mg] 650 mg PO Q6H PRN tablet 03/09/19 [Last Taken Unknown] Sodium Bicarbonate 325 mg PO DAILY #30 tablet 03/09/19 [Last Taken Unknown] Discharge Plan - Discharge Instructions Activity at Discharge: Ambulate Only With Your Walker Diet at Discharge: Advance to Usual Diet Additional Instructions: -[facility] see you at home for nursing, speech and physical therapy. Your nurse will draw blood for labs at the first visit. -Call Dr. Goldstein's office on Wednesday, as planned, to schedule follow up appointment. - Take salt tablets daily as prescribed - Home nurse to recheck levels on Wednesday - Consult Dr Amador regarding Namenda, Aricept, Hydrochlorthiazide, Lexapro as these medications can cause low sodium and follow his recommendations for changes Quality Measures - Quality Measures Quality Measures: Advance Directives, Documentation of Current Medications in Medical Record, Elder Maltreatment Screen and Follow-Up Plan, Screening for High Blood Pressure and F/U Documented - Current Medications Quality Measure: Measure #130: Documentation of Current Medications Documentation of Current Medications: <Current Medications Documented/Reviewed> [G9143] - Blood Pressure Screening Quality Measure: Screening for High Blood Pressure and Follow-Up Documented Does Patient Have Any of the Following: Active Dx of HTN Blood Pressure Classification: Hypertensive Reading Systolic Measurement: 195 Diastolic Measurement: 95 Screening for High Blood Pressure: Patient Exclusion, Hx of HTN [G9744] - Advance Directives Quality Measure: Measure #47: Care Plan Advance Directives Established: Yes Advance Directives Information Provided To Patient: No Advance Directives on File: No Living Will: Yes Power of Compound Machine Operator: Yes () Power of Compound Machine Operator Name: MARY CAMACHO Advance Care Planning: <Care Plan/Decision Maker Documented; Discussed & Documented> [3003F] - Elder Abuse Suspicion Index Screening: Elder Abuse Suspicion Index Screening Rely on people for bathing, dressing, shopping, banking, etc: Yes Prevented from getting food, clothes, medication, etc: No Made to feel shamed or threatened by someone: No Forced to sign papers or use money against will: No Feel afraid, touched in ways not wanted or hurt physically: No Poor eye contact, withdrawn, malnourished, cuts or bruises: No Screening Result: Negative result EASI Reference Information: Ana PALMA, Bhavesh Luz, Ines Gauthier, Jarret Swann.Development and validation of a tool to assist physicians identification of elder abuse: The Elder Abuse Suspicion Index (EASI ). Journal of Elder Abuse and Neglect, 2008; 20 (3): 276-300. - Elder Maltreatment Screen Quality Measures: Elder Maltreatment Screen and Follow-Up Plan Elder Maltreatment Screen: <Negative, No Follow-Up Plan Required> [G8734]
[2019-03-09 20:48] LABS: OSMOLALITY,URINE 359 mOsm/kg (250-1200)
== END 2019-03-09 18:30 | disposition home health service (06) | DRG 641 ==
LOC: ER 17:33 → OBSVTOIN 19:47 → MEDSURG 19:47
PROVIDERS: ADMIT Internal Medicine; ATTEND Internal Medicine
DX: E87.1 Hypo-osmolality and hyponatremia (principal); F02.81 Dementia in other diseases classified elsewhere, unspecified severity, with behavioral disturbance; N39.0 Urinary tract infection, site not specified; F68.8 Other specified disorders of adult personality and behavior; G20 Parkinson's disease; R29.6 Repeated falls; G89.29 Other chronic pain; I10 Essential (primary) hypertension; J44.9 Chronic obstructive pulmonary disease, unspecified; K21.9 Gastro-esophageal reflux disease without esophagitis; Z87.891 Personal history of nicotine dependence; Z85.828 Personal history of other malignant neoplasm of skin; R35.1 Nocturia
CPT/HCPCS: 71046; 80048; 80053; 81001; 81003; 82550; 82553; 83935; 84443; 84484; 85025; 93005; 93010; 94640; 99223; 99232; 99285

== ENCOUNTER 2019-03-27 04:07 | Emergency (ER) | payer MEDICARE ==
[2019-03-27 04:49] LABS: ABSOLUTE NEUTROPHIL COUNT 4.43; BASO % 0.3 % (0-6); EOS % 2.7 % (0-6); GRAN % 75.8 % (47-80); HEMATOCRIT 40.8 % (42.0-52.0); HEMOGLOBIN 13.5 gm/dl (14.0-18.0); LYMPH % 11.8 % (16-45); MEAN CELL VOLUME 98.8 fl (81-97); MEAN CORPUSCULAR HGB CONC 33.1 g/dl (32-36); MEAN PLATELET VOLUME 9.1 fl (7.4-10.4); MONO % 9.4 % (0-9); PLATELET COUNT 198 K/uL (130-400); RED BLOOD COUNT 4.13 M/uL (4.40-5.70); RED CELL DISTRIBUTION WIDTH 13.5 % (11.5-14.5); WHITE BLOOD COUNT W/O DIFF 5.9 K/uL (4.2-12.2)
[2019-03-27 04:50] LABS: MEAN CORPUSCULAR HEMOGLOBIN 32.6 pg (27-33)
--- NOTE | 2019-03-27 04:55 | Emergency Department Record ---
History of Present Illness - General Chief Complaint: Fall Injury Stated Complaint: FALL Time Seen by Provider: 03/27/19 04:26 Source: Family Mode of Arrival: Ambulatory Limitations: No limitations - History of Present Illness Initial Comments: pt fell in kitchen hitting the back of his head. no loc. states pt is not eating or drinking normally. says hes had wt loss MD Complaint: Fall Onset/Timin -: Hour(s) Fall From: Standing When Fall Occurred: 4-6 hours SENIOR TECHNICAL ANALYST Fall Witnessed: Yes, by family Place Fall Occurred: Home Loss of Consciousness: None Prolonged Down Time?: No Symptoms Prior to Fall: None Location: Head - Vipul Coma Scale Eye Response: (4) Open spontaneously Motor Response: (6) Obeys commands Verbal Response: (4) Confused conversation Harrison Total: 14 - Related Data Home Medications Medication Instructions Recorded Confirmed Last Taken Divalproex Sodium [Depakote] 500 mg PO QHS 03/27/19 03/27/19 03/26/19 Polyethylene Glycol 3350 [Miralax] 1 packet PO DAILY PRN 03/27/19 03/27/19 03/26/19 Previous Rx's Medication Instructions Recorded Acetaminophen [Tylenol 325Mg] 650 mg PO Q6H PRN tablet 03/09/19 Sodium Bicarbonate 325 mg PO DAILY #30 tablet 03/09/19 Allergies Allergy/AdvReac Type Severity Reaction Status Date / Time No Known Drug Allergies Allergy Unknown Verified 03/06/19 17:51 [NO KNOWN DRUG ALLERGIES] Travel Screening - Travel/Exposure Within Last 30 Days Have you traveled within the last 30 days?: No - Travel/Exposure Within Last Year Have you traveled outside the [place] in the last year?: No - Additonal Travel Details Have you been exposed to anyone with a communicable illness?: No - Travel Symptoms Symptom Screening: None Review of Systems ROS unobtainable: Due to mental status Past Medical History - SOCIAL HISTORY Smoking Status: Former smoker - RESPIRATORY Hx Respiratory Disorders: Yes Hx COPD: Yes Hx Pneumonia: Yes - CARDIOVASCULAR Hx Cardio Disorders: Yes Hx Hypertension: Yes (good control w meds) - NEURO Hx Neuro Disorders: Yes Hx Dementia: Yes Hx Parkinson's Disease: Yes - GI Hx GI Disorders: Yes Hx Reflux: Yes Hx Rectal Bleeding: Yes Hx of Polyps: Yes - Hx Genitourinary Disorders: Yes Hx Prostate Problems: Yes - ENDOCRINE Hx Endocrine Disorders: No - MUSCULOSKELETAL Hx Musculoskeletal Disorders: Yes Hx Back Injury: Yes - PSYCH Hx Psych Problems: Yes Hx Depression: Yes - HEMATOLOGY/ONCOLOGY Hx Hematology/Oncology Disorders: Yes Hx Bruising: Yes Hx Cancer: Yes (skin cancer removed) Family Medical History Any Significant Family History?: Yes Hx Cancer: Brother/Sister Hx Diabetes: Brother/Sister Hx Heart Disease: Father, Mother, Brother/Sister Hx HTN: Father Hx Stroke: Father Physical Exam - General General Appearance: Alert, Cooperative, No acute distress - Head Head exam: Normal inspection - Eye Eye exam: Normal appearance, PERRL, EOMI Pupils: Normal accommodation - ENT ENT exam: Normal exam, Mucous membranes moist, Normal external ear exam, Normal orophraynx Ear exam: Normal external inspection. negative: External canal tenderness Nasal Exam: Normal inspection. negative: Discharge, Sinus tenderness Mouth exam: Normal external inspection, Tongue normal Teeth exam: Normal inspection. negative: Dental caries Throat exam: Normal inspection. negative: Tonsillar erythema, Tonsillar exudate - Neck Neck exam: Normal inspection, Full ROM. negative: Tenderness - Respiratory Respiratory exam: Normal lung sounds bilaterally. negative: Respiratory distress - Cardiovascular Cardiovascular Exam: Regular rate, Normal rhythm, Normal heart sounds - GI/Abdominal GI/Abdominal exam: Soft, Normal bowel sounds. negative: Tenderness - Rectal Rectal exam: Deferred - exam: Deferred - Extremities Extremities exam: Normal inspection, Full ROM, Normal capillary refill. negative: Tenderness - Back Back exam: Reports: Normal inspection, Full ROM. Denies: Muscle spasm, Rash noted, Tenderness - Neurological Neurological exam: Abnormal gait, Alert, CN II-XII intact, Other (shuffles) - Psychiatric Psychiatric exam: Normal affect, Normal mood - Skin Skin exam: Dry, Intact, Normal color, Warm Course Vital Signs 03/27/19 04:13 Pulse Rate [ 84 Pulse Ox Probe] Respiratory 20 Rate Blood Pressure 166/110 [Left Arm] Pulse Ox 97 Medical Decision Making - Lab Data Result diagrams: 03/27/19 04:40 03/27/19 04:40 Disposition Disposition: Discharge Clinical Impression: Head injury Qualifiers: Encounter type: initial encounter Qualified Code(s): S09.90XA - Unspecified injury of head, initial encounter Disposition: Home, Self-Care Condition: (1) Good Instructions: Fall Prevention for Older Adults (ED), Head Injury (ED) Additional Instructions: follow up with family doctor. return sooner if worse Forms: Patient Portal Access Quality - Quality Measures Quality Measures: Blunt Head Trauma (>2yr) - Vipul Coma Scale Harrison Coma Scale: Vipul Coma Scale Eye Response: (4) Open spontaneously Motor Response: (6) Obeys commands Verbal Response: (4) Confused conversation Harrison Total: 14 - Blunt Head Trauma - Adult Quality Measure: Measure #415: Utilization of CT for Minor Blunt Head Trauma ICD10 Codes Entered: Yes Was CT ordered: Yes Does Patient Have Any of the Following: No Exclusions Patient Presented Within 24 Hours of Injury: Yes Harrison Score: [address] for Minor Blunt Head Trauma: Not Eligible For Measure Additional Inclusion Criteria: More than 24hrs (OR) GCS not 15 (OR) CT not ordered. Indications For CT: Age 65 Years and Older Not Eligible Reason: GCS Score Less Than 15 - Blood Pressure Screening Does Patient Have Any of the Following: Active Dx of HTN Blood Pressure Classification: Hypertensive Reading Systolic Measurement: 166 Diastolic Measurement: 110 Screening for High Blood Pressure: Patient Exclusion, Hx of HTN [G9744]
[2019-03-27 04:57] LABS: BLOOD UREA NITROGEN 33 mg/dL (8-23); CREATININE 1.5 mg/dL (0.7-1.2); EST GLOMERULAR FILTRATION RATE 48 mL/min
[2019-03-27 04:58] LABS: TOTAL PROTEIN 6.8 g/dL (6.6-8.7)
[2019-03-27 05:00] LABS: GLUCOSE,RANDOM 91 mg/dL (74-109)
[2019-03-27 05:02] LABS: ALT/SGPT < 5 U/L (<41); AST/SGOT 30 U/L (10.0-50.0)
[2019-03-27 05:03] LABS: ALB/GLOB RATIO 1.7 (1.1-1.8); ALBUMIN 4.3 g/dL (4.0-5.0); ALKALINE PHOSPHATASE 89 U/L (40-129); VALPROIC ACID (DEPAKENE) 37.6 ug/mL (50.0-100.0)
--- NOTE | 2019-03-27 14:39 | CT SCAN REPORT ---
EXAM: CT OF THE BRAIN WITHOUT CONTRAST HISTORY: TWO RECENT FALLS. TECHNIQUE: Routine noncontrast CT of the brain was obtained. Comparison: CT of the brain without contrast dated 03/03/19. FINDINGS: Mild to moderate dilatation of the subarachnoid spaces is redemonstrated consistent with generalized atrophy. The ventricles are not grossly enlarged. Mild periventricular and subcortical white matter lucencies are again noted scattered in each cerebral hemisphere consistent with chronic microvascular ischemia. No definite new area of abnormally increased or decreased attenuation is noted throughout the brain substance. No abnormal extraaxial fluid collection is seen. No acute skull fracture is identified. The visualized paranasal sinuses and mastoid air cells are clear. There is atherosclerotic calcification of the distal left vertebral artery as well as the distal internal carotid arteries. Minimal mucosal thickening is noted in a few ethmoid air cells. The visualized paranasal sinuses and mastoid air cells are otherwise clear. Post cataract surgery changes are noted bilaterally. The orbits are otherwise unremarkable. No skull fracture. Advanced arthritic changes of the atlantodental joint redemonstrated. IMPRESSION: 1. NO CT EVIDENCE OF AN ACUTE INTRACRANIAL ABNORMALITY NOR SKULL FRACTURE WITHOUT CHANGE IN APPEARANCE OF THE BRAIN SINCE 03/03/19. 2. GENERALIZED ATROPHY REDEMONSTRATED. MILD WHITE MATTER LUCENCIES SCATTERED IN EACH CEREBRAL HEMISPHERE ARE NONSPECIFIC, BUT LIKELY AREAS OF CHRONIC MICROVASCULAR ISCHEMIA. JOB NUMBER: [id number] [facility]
--- NOTE | 2019-03-27 15:02 | CT SCAN REPORT ---
EXAM: CT OF THE CERVICAL SPINE WITHOUT CONTRAST HISTORY: TWO RECENT FALLS. TECHNIQUE: Routine noncontrast CT examination of the cervical spine was performed without intravenous contrast. Coronal and sagittal reformatted images are generated and reviewed. Comparison: CT of the cervical spine without contrast dated 03/03/19. FINDINGS: There is normal bone mineralization. There is straightening of the normal cervical lordosis likely due to positioning or muscle spasm. Minimal anterolisthesis of C3 on C4 is redemonstrated. The vertebral bodies are otherwise normal in alignment and height, unchanged. No acute fracture, destructive bone lesion or prevertebral soft tissue swelling. Severe hypertrophic degenerative change of the atlantodental joint is again noted. This causes ventral sac flattening without gross central canal stenosis. Multilevel degenerative disk/degenerative end plate changes are again identified, most pronounced at the C4-C5 through the C7-T1 levels where the changes are moderate to advanced. Multilevel bilateral facet arthropathy is redemonstrated most pronounced at the mid to upper levels where the changes are moderate to advanced. Multilevel bilateral neural foraminal narrowing is again suggested due to uncovertebral joint spurring and facet arthropathy. This pattern is unchanged. No new cervical mass nor adenopathy. Atherosclerotic calcification of the carotid bifurcations, mild in degree is redemonstrated. There are moderate degenerative changes of the sternoclavicular joints, right greater than left. The visualized upper lungs are clear. The visualized paranasal sinuses and mastoid air cells are clear. IMPRESSION: 1. STABLE NONCONTRAST CT APPEARANCE OF THE CERVICAL SPINE WITH NO EVIDENCE OF ACUTE FRACTURE, SUSPICIOUS SUBLUXATION OR PREVERTEBRAL SOFT TISSUES SWELLING. 2. MULTILEVEL DEGENERATIVE CHANGES REDEMONSTRATED, DISCUSSED ABOVE. JOB NUMBER: [id number] [facility]
== END 2019-03-27 06:04 | disposition home or self-care (01) ==
LOC: ER 04:07
DX: S09.90XA Unspecified injury of head, initial encounter (principal); I10 Essential (primary) hypertension; Z87.891 Personal history of nicotine dependence; F03.90 Unspecified dementia, unspecified severity, without behavioral disturbance, psychotic disturbance, mood disturbance, and anxiety; W18.39XA Other fall on same level, initial encounter; Z91.81 History of falling; Y93.9 Activity, unspecified; Y92.010 Kitchen of single-family (private) house as the place of occurrence of the external cause; Y99.9 Unspecified external cause status
CPT/HCPCS: 70450; 72125; 80053; 80164; 85025; 99284; 99285